=== PATIENT | male | born 1945 | race Caucasian/White ===

== ENCOUNTER 2016-09-16 10:00 | Outpatient (RCR) | payer OTHER, BC ==
--- OUTSIDE RECORDS SUMMARY | 2016-08-16 12:39 | XMS REPORT | Continuity of Care Document ---
Author Author [facility] Organization [facility] Address Unknown Phone Unavailable Care Team Providers Care Supreme [employer] Judge Name Role Phone BeckyAnita PCP [phone] Source Comments Some departments are not documenting in the electronic medical record. If you do not see the information that you expected, contact Release of Information in the Health Information Management department at [phone] for further assistance in locating additional records.[facility] Active Allergies and Adverse Reactions No Known Allergies Current Medications Prescription Sig. Disp. Refills Start End Date Status Date traMADol (ULTRAM) 50 mg Take 1 Tab by mouth every 40 Tab 0 08/18/19 Active tablet 6 hours as needed for 16 Pain. albuterol (VENTOLIN HFA, Inhale 2 Puffs by mouth Active PROAIR HFA, PROVENTIL into the lungs every 6 HFA) 90 mcg/actuation hours as needed for inhaler Wheezing or Shortness of Breath. Shake well before use. BUDESONIDE/FORMOTEROL Inhale by mouth into the Active FUMARATE (SYMBICORT IN) lungs. 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 CT and Tumor Markers prior to surgery negative. Pathology: Cystic Seminoma. 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 Respiratory Rate 16 09/08/2015 4:39 PM CDT Height 1.829 m (6') 03/08/2016 3:03 PM CDT Weight 68.04 kg (150 lb) 03/08/2016 3:03 PM CDT Body Mass Index 20.34 03/08/2016 3:03 PM CDT Oxygen Saturation 95% 08/12/2015 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 Plan of Care Date Type Specialty Providers Description 09/06/2016 Appointment Radiology Pavel Walker MD [address] [facility] [address] [place] [address] [phone] (Fax) 09/06/2016 Appointment Urology Pavel Walker MD [address] [facility] [place] [address] [place] [address] [phone] (Fax) Health Maintenance Due Date Last Done Comments Physical (Comprehensive) 1950 Exam Pertussis Vaccine 1954 Tetanus Vaccine 1960 Colorectal Cancer 1993 Screening Shingles Vaccine 2003 Prevnar/Pneumovax (#1) 2008 Influenza Vaccine 02/19/2016 Results from Last 3 Months Not on file
== END 2016-11-14 | disposition home or self-care (01) ==
LOC: PULM 10:00
PROVIDERS: ATTEND Nurse Practitioner
DX: J44.9 Chronic obstructive pulmonary disease, unspecified (principal)
CPT/HCPCS: 99211

== ENCOUNTER 2020-08-07 10:51 | Inpatient (IN) | payer MEDICARE, OTHER ==
[~2020-08-07] VITALS: Ht 177.8 cm; Wt 63.5 kg
[2020-08-07 11:59] LABS: BASOPHILS % (AUTO) 0 % (0-10); EOSINOPHILS % (AUTO) 0 % (0-10); HEMATOCRIT 25 % (40-54); HEMOGLOBIN 8.1 g/dL (13.3-17.7); LYMPHOCYTES % (AUTO) 6 % (12-44); MEAN CORPUSCULAR HEMOGLOBIN 30 pg (25-34); MEAN CORPUSCULAR HGB CONC 32 g/dL (32-36); MEAN CORPUSCULAR VOLUME 92 fL (80-99); MEAN PLATELET VOLUME 9.4 fL (9.0-12.2); MONOCYTES # (AUTO) 1.1 10^3/uL (0.0-1.0); MONOCYTES % (AUTO) 6 % (0-12); NEUTROPHILS # (AUTO) 15.1 10^3/uL (1.8-7.8); NEUTROPHILS % (AUTO) 88 % (42-75); PLATELET COUNT 364 10^3/uL (130-400); WHITE BLOOD COUNT 17.2 10^3/uL (4.3-11.0)
[2020-08-07 12:16] LABS: CHLORIDE 103 MMOL/L (98-107); POTASSIUM 4.7 MMOL/L (3.6-5.0); SODIUM 135 MMOL/L (135-145)
[2020-08-07 12:18] LABS: GLUCOSE 119 MG/DL (70-105)
[2020-08-07 12:19] LABS: CARBON DIOXIDE 22 MMOL/L (21-32)
[2020-08-07 12:20] LABS: BILIRUBIN,TOTAL 0.3 MG/DL (0.1-1.0)
[2020-08-07 12:21] LABS: BAND NEUTROPHILS 4 %; LYMPHOCYTES % (MANUAL) 3 %; MONOCYTES % (MANUAL) 5 %; NEUTROPHILS % (MANUAL) 84 %; TOXIC GRANULATION/VACUOLAZATIO 1+
[2020-08-07 12:22] LABS: ALKALINE PHOSPHATASE 81 U/L (40-136); CREATININE SERUM 1.02 MG/DL (0.60-1.30); GFR ESTIMATED > 60
[2020-08-07 12:23] LABS: BUN/CREATININE RATIO 30
--- NOTE | 2020-08-07 12:23 | Diagnostic Imaging Report ---
INDICATION: Increasing cough and dyspnea. Single AP view of the chest reveals dense mixed interstitial and alveolar densities in the upper 3rd of the right lung. Heart size and pulmonary vascularity are within normal limits. No other focal infiltrate, pneumothorax or pleural fluid is identified. IMPRESSION: Dense right upper lobe infiltrate of uncertain chronicity. This could represent fibrosis however acute pneumonia is not excluded. Possibility of postobstructive pneumonitis could have this appearance and clinical correlation is recommended. Short-term radiographic followup is recommended. If this finding persists, bronchoscopy or CT imaging should be considered. Dictated by: Dictated on workstation # [id number]
[2020-08-07 12:25] LABS: ALANINE AMINOTRANSFERASE 14 U/L (0-55)
[2020-08-07 12:43] LABS: INR 1.2 (0.8-1.4); PROTHROMBIN TIME PATIENT 15.6 SEC (12.2-14.7)
[2020-08-07] MEDS ORDERED: cefTRIAXone FOR IV USE 1,000 MG in WATER (STERILE) FOR INJECTION 10 ML IV ONE (13:45)
[2020-08-07 13:55] LABS: BILIRUBIN,URINE NEGATIVE (NEGATIVE); CLARITY,URINE CLEAR; COLOR,URINE YELLOW; GLUCOSE, URINE (UA) NEGATIVE (NEGATIVE); KETONES,URINE NEGATIVE (NEGATIVE); LEUKOCYTE ESTERASE ,URINE NEGATIVE (NEGATIVE); NITRITE,URINE NEGATIVE (NEGATIVE); PROTEIN,URINE TRACE (NEGATIVE)
[2020-08-07 14:07] LABS: BACTERIA,URINE NEGATIVE /HPF; SQUAMOUS EPITHELIAL CELL,UR 0-2 /HPF
--- NOTE | 2020-08-07 14:10 | ED General ---
General Chief Complaint: Respiratory Problems Stated Complaint: CHILLS,WEAKNESS,COUGH,SORE THROAT Nursing Triage Note: Ambulatory to ED. Pt reports history of COPD but reports increased SOB, and cough. Pt reports cough is productive and sputum is light brown. Pt reports fever, chills, and weakness. Symptoms have persisted for 3-4 days. Nursing Sepsis Screen: No Definite Risk Source of Information: Patient Exam Limitations: No Limitations History of Present Illness Date Seen by Provider: Aug 07, 2020 Time Seen by Provider: 11:35 Initial Comments This 75-year-old gentleman presents to the emergency room with complaints of increasing shortness of breath and cough over the past couple of days. He has a history of COPD. He has subjective fever, chills, and weakness but is afebrile at present. He sees the CT clinic in [place] and has an appointment with Dr. Spear coming up August 25. He reports COPD is his only health problem. Allergies and Home Medications Allergies Coded Allergies: No Known Drug Allergies (Unverified , 08/07/20) Patient Home Medication List Home Medication List Reviewed: Yes Review of Systems Review of Systems Constitutional: see HPI EENTM: no symptoms reported Respiratory: see HPI Cardiovascular: no symptoms reported Gastrointestinal: no symptoms reported Genitourinary: no symptoms reported Musculoskeletal: no symptoms reported Skin: no symptoms reported Psychiatric/Neurological: No Symptoms Reported Hematologic/Lymphatic: No Symptoms Reported Past Ngqzhvk-Nounyd-Tgxepp Hx Past Med/Social Hx: Reviewed Nursing Past Med/Soc Hx Patient Social History Alcohol Use: Denies Use Smoking Status: Current Everyday Smoker Type Used: Cigarettes 2nd Hand Smoke Exposure: Yes Recent Infectious Disease Expo: No Recent Hopitalizations: No Past Medical History Surgeries: Yes Adenoidectomy, Testicular, Tonsillectomy Respiratory: Yes COPD Cardiac: No Neurological: No Genitourinary: Yes ("flow problems") Musculoskeletal: No Endocrine: No HEENT: Yes Hearing Impairment: Hard of Hearing Cancer: Yes Testicular Did You Recieve Any Treatments: Yes What Type of Treatment Did You: Surgical Intervention R testicle removed Psychosocial: No Integumentary: No Blood Disorders: No Physical Exam-Suspected Sepsis Physical Exam Vital Signs Vital Signs - First Documented 08/07/20 08/07/20 08/07/20 11:00 11:02 16:25 Temp 37.8 Pulse 83 Resp 20 B/P (MAP) 130/72 (91) Pulse Ox 89 O2 Delivery Room Air O2 Flow Rate 2.00 FiO2 21 Capillary Refill : Less Than 3 Seconds Blood Pressure Mean: 91 Height, Weight, BMI Height: '" Weight: lbs. oz. kg; 20.00 BMI Method: General Appearance: No Apparent Distress, WD/WN, Thin HEENT: PERRL/EOMI, Normal ENT Inspection Neck: Normal Inspection Respiratory: No Accessory Muscle Use, No Respiratory Distress, Crackles (Faint in the right lung) Cardiovascular: Regular Rate, Rhythm, No Edema, No Murmur Gastrointestinal: Normal Bowel Sounds, Non Tender, Soft Extremity: Normal Inspection, No Pedal Edema Neurologic/Psychiatric: Alert, Oriented x3, No Motor/Sensory Deficits, Normal Mood/Affect, hook up driver II-XII Norm as Tested Skin: normal color, warm/dry Focused Exam Lactate Level 08/07/20 11:38: Lactic Acid Level 1.30 Lactic Acid Level Progress/Results/Core Measures Suspected Sepsis Recent Fever Within 48 Hours: Yes Infection Criteria Present: Suspected New Infection New/Unexplained Altered Menta: No Sepsis Screen: No Definite Risk SIRS Temperature: Pulse: 83 Respiratory Rate: 20 Laboratory Tests 08/07/20 11:35: White Blood Count 17.2H Blood Pressure 130 /72 Mean: 91 08/07/20 11:38: Lactic Acid Level 1.30 Laboratory Tests 08/07/20 11:35: Creatinine 1.02, Platelet Count 364, Total Bilirubin 0.3 08/07/20 11:38: INR Comment 1.2 Results/Orders Lab Results Laboratory Tests Test 08/07/20 11:35 08/07/20 11:38 08/07/20 13:45 Range/Units White Blood Count 17.2 H 4.3-11.0 10^3/uL Red Blood Count 2.75 L 4.30-5.52 10^6/uL Hemoglobin 8.1 L 13.3-17.7 g/dL Hematocrit 25 L 40-54 % Mean Corpuscular Volume 92 80-99 fL Mean Corpuscular Hemoglobin 30 25-34 pg Mean Corpuscular Hemoglobin Concent 32 32-36 g/dL Red Cell Distribution Width 13.8 10.0-14.5 % Platelet Count 364 130-400 10^3/uL Mean Platelet Volume 9.4 9.0-12.2 fL Immature Granulocyte % (Auto) 1 % Neutrophils (%) (Auto) 88 H 42-75 % Lymphocytes (%) (Auto) 6 L 12-44 % Monocytes (%) (Auto) 6 0-12 % Eosinophils (%) (Auto) 0 0-10 % Basophils (%) (Auto) 0 0-10 % Neutrophils # (Auto) 15.1 H 1.8-7.8 10^3/uL Lymphocytes # (Auto) 1.0 1.0-4.0 10^3/uL Monocytes # (Auto) 1.1 H 0.0-1.0 10^3/uL Eosinophils # (Auto) 0.0 0.0-0.3 10^3/uL Basophils # (Auto) 0.0 0.0-0.1 10^3/uL Immature Granulocyte # (Auto) 0.1 0.0-0.1 10^3/uL Neutrophils % (Manual) 84 % Lymphocytes % (Manual) 3 % Monocytes % (Manual) 5 % Band Neutrophils 4 % Toxic Granulation 1+ Sodium Level 135 135-145 MMOL/L Potassium Level 4.7 3.6-5.0 MMOL/L Chloride Level 103 98-107 MMOL/L Carbon Dioxide Level 22 21-32 MMOL/L Anion Gap 10 5-14 MMOL/L Blood Urea Nitrogen 31 H 7-18 MG/DL Creatinine 1.02 0.60-1.30 MG/DL Estimat Glomerular Filtration Rate > 60 BUN/Creatinine Ratio 30 Glucose Level 119 H 70-105 MG/DL Calcium Level 9.0 8.5-10.1 MG/DL Corrected Calcium 9.8 8.5-10.1 MG/DL Total Bilirubin 0.3 0.1-1.0 MG/DL Aspartate Amino Transf (AST/SGOT) 15 5-34 U/L Alanine Aminotransferase (ALT/SGPT) 14 0-55 U/L Alkaline Phosphatase 81 40-136 U/L C-Reactive Protein High Sensitivity 32.25 H 0.00-0.50 MG/DL Total Protein 7.0 6.4-8.2 GM/DL Albumin 3.0 L 3.2-4.5 GM/DL Coronavirus 2019 (HALLIE) Positive H Negative Prothrombin Time 15.6 H 12.2-14.7 SEC INR Comment 1.2 0.8-1.4 Activated Partial Thromboplast Time 48 H 24-35 SEC D-Dimer 2.93 H 0.00-0.49 UG/ML Lactic Acid Level 1.30 0.50-2.00 MMOL/L Procalcitonin 1.75 H <0.10 NG/ML Urine Color YELLOW Urine Clarity CLEAR Urine pH 6.0 5-9 Urine Specific [place] 1.015 L 1.016-1.022 Urine Protein TRACE H NEGATIVE Urine Glucose (UA) NEGATIVE NEGATIVE Urine Ketones NEGATIVE NEGATIVE Urine Nitrite NEGATIVE NEGATIVE Urine Bilirubin NEGATIVE NEGATIVE Urine Urobilinogen 0.2 < = 1.0 MG/DL Urine Leukocyte Esterase NEGATIVE NEGATIVE Urine RBC (Auto) NEGATIVE NEGATIVE Urine RBC NONE /HPF Urine WBC NONE /HPF Urine Squamous Epithelial Cells 0-2 /HPF Urine Crystals NONE /LPF Urine Bacteria NEGATIVE /HPF Urine Casts NONE /LPF Urine Mucus SMALL H /LPF Urine Culture Indicated CULTURE PENDING Micro Results Microbiology 08/07/20 Influenza Types A,B Antigen (AALIYAH) - Final, Complete My Orders Orders - ROBERT WILEY MD Cbc With Automated Diff (08/07/20 11:40) Comprehensive Metabolic Panel (08/07/20 11:40) Hs C Reactive Protein (08/07/20 11:40) Influenza A And B Antigens (08/07/20 11:40) Chest 1 View, Ap/Pa Only (08/07/20 11:40) Covid 19 Inhouse Test (08/07/20 11:40) Ed Iv/Invasive Line Start (08/07/20 11:40) Manual Differential (08/07/20 11:35) Blood Culture (08/07/20 12:29) Sputum Culture (08/07/20 12:29) Urinalysis (08/07/20 12:29) Urine Culture (08/07/20 12:29) Protime With Inr (08/07/20 12:29) Partial Thromboplastin Time (08/07/20 12:29) Vital Signs Adult Sepsis Patie Q15M (08/07/20 12:29) O2 (08/07/20 12:29) Remove Rings In Anticipation O (08/07/20 12:29) Lactic Acid Analyzer (08/07/20 12:29) Dexamethasone Injection (Decadron Inje (08/07/20 13:45) Ceftriaxone For Iv Use (Rocephin For I (08/07/20 13:45) Procalcitonin (Pct) (08/07/20 13:34) Fibrin Degradation Products (08/07/20 14:00) Enoxaparin Injection (Lovenox Injection) (08/07/20 14:45) Medications Given in ED Current Medications Medications Dose Ordered Sig/Fariba Route Start Time Stop Time Status Last Admin Dose Admin Ceftriaxone Sodium 1000 mg/ Sterile Water 10 ml @ 200 mls/hr ONCE ONCE IV 08/07/20 13:45 08/07/20 13:47 DC 08/07/20 13:56 200 MLS/HR Dexamethasone Sodium Phosphate 6 mg ONCE ONCE IV 08/07/20 13:45 08/07/20 13:46 DC 08/07/20 13:51 6 MG Vital Signs/I&O 08/07/20 08/07/20 08/07/20 08/07/20 11:00 11:02 15:12 15:45 Temp 37.8 37.8 Pulse 83 73 Resp 20 20 B/P (MAP) 130/72 (91) 125/67 (91) Pulse Ox 89 94 94 O2 Delivery Room Air Nasal Cannula Nasal Cannula Nasal Cannula O2 Flow Rate 2.00 2.00 1.00 08/07/20 08/07/20 16:25 16:41 Temp 37.8 36.8 Pulse 83 87 Resp 18 B/P (MAP) 128/69 (88) Pulse Ox 89 91 O2 Delivery Nasal Cannula O2 Flow Rate 1.00 FiO2 21 Capillary Refill : Less Than 3 Seconds Blood Pressure Mean: 91 Progress Note #1: Time: 14:12 Progress Note Patient was seen and evaluated. Screening for COVID-19 and influenza resulted positive for COVID-19. Chest x-ray revealed a right upper lobe infiltrate suspicious for pneumonia or pneumonitis. Blood cultures and lactic acid were obtained. Dexamethasone was given. Antibiotic therapy was initiated with Rocephin. Upon admission antibiotic therapy will be changed to Zosyn due to COPD history. We will continue steroid therapy with dexamethasone. CTA should be obtained on this patient given the appearance of chest x-ray. Dr. Spear will arrange for CT after admission. Case was reviewed with Dr. Spear and Dr. Aburto. I discussed CODE STATUS with the patient and he would like to remain full code. Progress Note #2: Time: 14:33 Progress Note D-dimer was elevated and Lovenox was ordered to administer in the ER. Dr. Aburto and Dr. Spear were updated. Diagnostic Imaging Diagonstic Imaging: Xray Plain Films/CT/US/NM/MRI: chest Comments Chest x-ray viewed by me and report reviewed. See report below: NAME: STEVE SCHULTE [facility] REC#: [id number] PT STATUS: REG ER : 1945 PHYSICIAN: ROBERT WILEY MD ADMIT DATE: 08/07/20/ER Draft Date of Exam:08/07/20 CHEST 1 VIEW, AP/PA ONLY INDICATION: Increasing cough and dyspnea. Single AP view of the chest reveals dense mixed interstitial and alveolar densities in the upper 3rd of the right lung. Heart size and pulmonary vascularity are within normal limits. No other focal infiltrate, pneumothorax or pleural fluid is identified. IMPRESSION: Dense right upper lobe infiltrate of uncertain chronicity. This could represent fibrosis however acute pneumonia is not excluded. Possibility of postobstructive pneumonitis could have this appearance and clinical correlation is recommended. Short-term radiographic followup is recommended. If this finding persists, bronchoscopy or CT imaging should be considered. Dictated on workstation # [id number] Dict: 08/07/20 1215 Trans: 08/07/20 1223 [facility] [id number] Interpreted by: ANNEMARIE BROOKS MD Departure Communication (Admissions) Time/Spoke to Admitting Phy: 14:04 Dr. Aburto Time/Spoke to Consulting Phy: 14:00 Dr. Spear Impression Primary Impression: COVID-19 Additional Impressions: Hypoxia Right upper lobe pneumonia Qualified Codes: J18.9 - Pneumonia, unspecified organism COPD exacerbation Elevated d-dimer Disposition: ADMITTED INPATIENT Condition: Improved Admissions Decision to Admit Reason: Admit from ER (General) Decision to Admit/Date: Aug 07, 2020 Time/Decision to Admit Time: 11:40 Departure-Patient Inst. Referrals: LUBNA HAWKINS (PCP/Family) Primary Care Physician ROBERT WILEY MD Aug 07, 2020 14:10
[2020-08-07] MEDS ORDERED: ENOXAPARIN 60 MG/0.6 ML (LOVENOX) SYR SC ONE (14:45)
[2020-08-07 16:25] VITALS: BP 130/72
[2020-08-07 16:41] VITALS: BP 128/69
[2020-08-07] MEDS ORDERED: ACETAMINOPHEN 500 MG TAB (TYLENOL) PO PRN (16:45)
[2020-08-07] MEDS ORDERED: PIPERACILLIN/TAZO 4.5 GM/NS 100 ML IV NR ×2 (17:00)
[2020-08-07] MEDS ORDERED: ONDANSETRON 4 MG/2 ML (SDV) Z0FRAN IVP PRN (17:15)
[2020-08-07] MEDS: LACTATED RINGERS 1,000 ML IV SCH (18:02)
[2020-08-07] MEDS: IPRATROPIUM INHALER (ATROVENT) 12.9 GM INH SCH ×2 (18:40→22:10)
[2020-08-07] MEDS: RT-ALBUTEROL INHALER HFA (VENTOLIN HFA) 18 GM IH SCH ×2 (18:40→22:09)
[2020-08-07] MEDS ORDERED: RT-ALBUTEROL INHALER HFA (VENTOLIN HFA) 18 GM IH PRN (20:00)
[2020-08-07 20:18] VITALS: BP 119/70
[2020-08-07] MEDS: PIPERACILLIN/TAZOBACTAM (BULK) 4.5 GM in NS (IVPB) 100 ML IV SCH (22:51)
[2020-08-08] VITALS (7 sets, daily range): BP systolic 101–167; BP diastolic 55–83
[2020-08-08] MEDS: RT-ALBUTEROL INHALER HFA (VENTOLIN HFA) 18 GM IH SCH ×6 (02:01→21:35)
[2020-08-08] MEDS: IPRATROPIUM INHALER (ATROVENT) 12.9 GM INH SCH ×6 (02:01→21:35)
[2020-08-08] MEDS: ENOXAPARIN 60 MG/0.6 ML (LOVENOX) SYR SC SCH ×2 (03:47→15:18)
[2020-08-08] MEDS: LACTATED RINGERS 1,000 ML IV SCH ×2 (06:18→15:18)
[2020-08-08] MEDS: PIPERACILLIN/TAZOBACTAM (BULK) 4.5 GM in NS (IVPB) 100 ML IV SCH ×2 (06:21→15:18)
[2020-08-08 06:39] LABS: BASOPHILS % (AUTO) 0 % (0-10); EOSINOPHILS % (AUTO) 0 % (0-10); HEMATOCRIT 27 % (40-54); HEMOGLOBIN 8.5 g/dL (13.3-17.7); LYMPHOCYTES # (AUTO) 0.9 10^3/uL (1.0-4.0); LYMPHOCYTES % (AUTO) 7 % (12-44); MEAN CORPUSCULAR HEMOGLOBIN 29 pg (25-34); MEAN CORPUSCULAR HGB CONC 31 g/dL (32-36); MEAN CORPUSCULAR VOLUME 93 fL (80-99); MEAN PLATELET VOLUME 9.6 fL (9.0-12.2); MONOCYTES # (AUTO) 0.5 10^3/uL (0.0-1.0); MONOCYTES % (AUTO) 4 % (0-12); NEUTROPHILS # (AUTO) 11.7 10^3/uL (1.8-7.8); NEUTROPHILS % (AUTO) 89 % (42-75); PLATELET COUNT 425 10^3/uL (130-400); WHITE BLOOD COUNT 13.2 10^3/uL (4.3-11.0)
[2020-08-08 06:41] LABS: CHLORIDE 106 MMOL/L (98-107); SODIUM 140 MMOL/L (135-145)
[2020-08-08 06:42] LABS: CALCIUM 9.1 MG/DL (8.5-10.1)
[2020-08-08 06:43] LABS: GLUCOSE 127 MG/DL (70-105)
[2020-08-08 06:44] LABS: CARBON DIOXIDE 23 MMOL/L (21-32)
[2020-08-08 06:47] LABS: BUN/CREATININE RATIO 38; CREATININE SERUM 0.87 MG/DL (0.60-1.30); GFR ESTIMATED > 60
[2020-08-08] MEDS ORDERED: ALB0.5V INH (12:30)
[2020-08-08] MEDS ORDERED: MOME13HF INH (12:30)
[2020-08-08] MEDS ORDERED: GUAI400T86 PO (12:30)
[2020-08-08] MEDS ORDERED: NAPR-915 PO (12:30)
[2020-08-08] MEDS ORDERED: ACET-2267 PO (12:30)
[2020-08-08] MEDS ORDERED: MONT10TA32 PO (12:30)
[2020-08-08] MEDS ORDERED: RT-ALBUINH IH (12:30)
[2020-08-08] MEDS ORDERED: TIOT4MIS2 IH (12:30)
[2020-08-08] MEDS ORDERED: TMSL.4C PO (12:30)
[2020-08-08] MEDS ORDERED: diphenhydrAMINE 25 MG TAB (BENADRYL) PO PRN ×2 (16:15→23:45)
[2020-08-08] MEDS ORDERED: ONDANSETRON 4 MG/2 ML (SDV) Z0FRAN IV PRN (16:15)
[2020-08-08] MEDS ORDERED: MILK OF MAGNESIA 400 MG/5 ML 30 ML UDC PO PRN (16:15)
[2020-08-08] MEDS ORDERED: polyethylene glycoL POWDER 17 GM (MIRALAX) PACK PO PRN (16:15)
[2020-08-08] MEDS ORDERED: ANTACID SUSP 30 ML UDC (MYLANTA) PO PRN (16:15)
[2020-08-08] MEDS ORDERED: ONDANSETRON 4 MG (ZOFRAN) ORAL DISSOLVE TAB PO PRN (16:15)
--- NOTE | 2020-08-08 16:35 | History & Physical-Hospitalist ---
History of Present Illness HPI/Chief Complaint Artie Valderrama is a 75 year old male with COPD, BPH, who presented with shortness of breath. He reports that he started feeling bad about 5 days ago. He reports cough and sputum production. He has had fevers. He denies chest pain. He denies abnormal taste and smell. He denies diarrhea. He denies nausea and vomiting. He is a current every day smoker of about one pack per day. Source: patient Exam Limitations: no limitations Date Seen 08/08/20 Time Seen by a Provider: 10:15 Attending Physician Danielle Greene MD PCP Anita Willis Referring Physician Date of Admission Aug 07, 2020 at 14:07 Home Medications & Allergies Home Medications Reviewed patient Home Medication Reconciliation performed by pharmacy medication reconciliations geospatial technician and/or nursing. Patients Allergies have been reviewed. Allergies Allergies Coded Allergies No Known Drug Allergies (Unverified08/07/20) Past Kxqtnfb-Wymzwc-Fnrlys Hx Past Med/Social Hx: Reviewed Nursing Past Med/Soc Hx Patient Social History Alcohol Use: Denies Use Recreational Drug Use: No Smoking Status: Current Everyday Smoker Type Used: Cigarettes 2nd Hand Smoke Exposure: Yes Recent Foreign Travel: No Contact w/other who traveled: No Recent Hopitalizations: No Recent Infectious Disease Expo: No Immunizations Up To Date Date of Influenza Vaccine: Mar 20, 2020 Past Medical History Surgeries: Adenoidectomy, Testicular, Tonsillectomy Hearing Impairment: Hard of Hearing Cancer: Testicular Did You Recieve Any Treatments: Yes What Type of Treatment Did You: Surgical Intervention Cancer: R testicle removed History of Blood Disorders: No Review of Systems Constitutional: fever, malaise EENTM: no symptoms reported Respiratory: cough, phlegm, short of breath Cardiovascular: no symptoms reported Gastrointestinal: no symptoms reported Genitourinary: no symptoms reported Musculoskeletal: muscle pain Skin: no symptoms reported Psychiatric/Neurological: No Symptoms Reported Physical Exam Physical Exam Vital Signs Vital Signs - First Documented 08/07/20 08/07/20 08/07/20 11:00 11:02 16:25 Temp 37.8 Pulse 83 Resp 20 B/P (MAP) 130/72 (91) Pulse Ox 89 O2 Delivery Room Air O2 Flow Rate 2.00 FiO2 21 Capillary Refill : Less Than 3 Seconds Height, Weight, BMI Height: '" Weight: lbs. oz. kg; 20.08 BMI Method: General Appearance: No Apparent Distress, WD/WN HEENT: PERRL/EOMI, Pharynx Normal Neck: Normal Inspection, Supple Respiratory: No Respiratory Distress, Decreased Breath Sounds Cardiovascular: Regular Rate, Rhythm, No Edema, No Murmur Gastrointestinal: Normal Bowel Sounds, Non Tender, Soft Extremity: Normal Inspection, Non Tender, No Pedal Edema Neurologic/Psychiatric: Alert, Oriented x3, No Motor/Sensory Deficits, Normal Mood/Affect Skin: Normal Color, Warm/Dry Results Results/Procedures Labs Laboratory Tests 08/07/20 11:35 08/08/20 06:03 Patient resulted labs reviewed. Imaging: Reviewed Imaging Report Assessment/Plan Admission Diagnosis Acute respiratory failure due to COVID-19 Admission Status: Inpatient Order (span 2 midnights) Reason for Inpatient Admission: Respiratory failure requiring supplemental oxygen Assessment and Plan Acute respiratory failure due to COVID-19 Sepsis due to pneumonia COPD Hypercoagulable state associated with COVID-19 COVID HALLIE positive SIRS+ with leukocytosis and tachycardia CXR with right upper lobe dense consolidation Follow up CT recommended Pulmonology consulted, appreciate assistance Started on Decadron Convalescent plasma ordered Supplemental oxygen as needed Continue home inhalers MAT protocol Procalcitonin elevated Started on Zosyn D-dimer elevated Started on therapeutic Lovenox Diagnosis/Problems Diagnosis/Problems (1) Acute respiratory failure due to COVID-19 Status: Acute (2) Sepsis due to pneumonia Status: Acute (3) Hypercoagulable state associated with COVID-19 Status: Acute (4) COPD (chronic obstructive pulmonary disease) Status: Chronic (5) BPH (benign prostatic hyperplasia) Status: Chronic (6) Current every day smoker DANIELLE GREENE MD Aug 08, 2020 16:35
[2020-08-08] MEDS ORDERED: NICOTINE 14 MG (NICODERM) PATCH TD ONE ×2 (16:45→21:00)
[2020-08-08] MEDS: ADVAIR HFA 115/21 MCG INHALER 8 GM IH SCH (18:56)
[2020-08-08] MEDS: guaiFENesin (MUCINEX) 600 MG TAB PO SCH (21:11)
[2020-08-08] MEDS: MELATONIN 3 MG TABLET PO PRN (21:11)
[2020-08-08] MEDS: ZOLPIDEM 5 MG (AMBIEN) TAB PO SCH (21:11)
[2020-08-08] MEDS: inSUlin ASPART (NovoLOG) 1 UNIT/0.01 ML (CHARGE PER UNIT) SC SCH (21:12)
[2020-08-08] MEDS ORDERED: NS IV 500 ML 500 ML ONE (22:25)
[2020-08-09 01:10] VITALS: BP 133/65
[2020-08-09] MEDS: PIPERACILLIN/TAZOBACTAM (BULK) 4.5 GM in NS (IVPB) 100 ML IV SCH ×4 (01:58→22:37)
[2020-08-09] MEDS: IPRATROPIUM INHALER (ATROVENT) 12.9 GM INH SCH ×6 (02:00→21:57)
[2020-08-09] MEDS: RT-ALBUTEROL INHALER HFA (VENTOLIN HFA) 18 GM IH SCH ×6 (02:00→21:58)
[2020-08-09 02:01] VITALS: BP 136/62
[2020-08-09 02:02] VITALS: BP 136/64
[2020-08-09] MEDS: ENOXAPARIN 60 MG/0.6 ML (LOVENOX) SYR SC SCH ×2 (04:06→16:15)
[2020-08-09 05:30] LABS: HEMATOCRIT 25 % (40-54); WHITE BLOOD COUNT 13.7 10^3/uL (4.3-11.0)
[2020-08-09 05:31] LABS: BASOPHILS % (AUTO) 0 % (0-10); EOSINOPHILS % (AUTO) 0 % (0-10); LYMPHOCYTES # (AUTO) 1.1 10^3/uL (1.0-4.0); LYMPHOCYTES % (AUTO) 8 % (12-44); MEAN CORPUSCULAR HEMOGLOBIN 29 pg (25-34); MEAN CORPUSCULAR HGB CONC 32 g/dL (32-36); MEAN CORPUSCULAR VOLUME 93 fL (80-99); MEAN PLATELET VOLUME 9.4 fL (9.0-12.2); MONOCYTES # (AUTO) 0.8 10^3/uL (0.0-1.0); MONOCYTES % (AUTO) 6 % (0-12); NEUTROPHILS # (AUTO) 11.6 10^3/uL (1.8-7.8); NEUTROPHILS % (AUTO) 85 % (42-75); PLATELET COUNT 371 10^3/uL (130-400)
[2020-08-09 05:41] LABS: CHLORIDE 104 MMOL/L (98-107); POTASSIUM 4.8 MMOL/L (3.6-5.0); SODIUM 136 MMOL/L (135-145)
[2020-08-09 05:42] LABS: CALCIUM 9.2 MG/DL (8.5-10.1)
[2020-08-09 05:43] LABS: GLUCOSE 122 MG/DL (70-105)
[2020-08-09 05:44] LABS: CARBON DIOXIDE 23 MMOL/L (21-32)
[2020-08-09] MEDS: inSUlin ASPART (NovoLOG) 1 UNIT/0.01 ML (CHARGE PER UNIT) SC SCH ×4 (05:46→21:01)
[2020-08-09 05:47] LABS: BUN/CREATININE RATIO 32; CREATININE SERUM 0.85 MG/DL (0.60-1.30); GFR ESTIMATED > 60
[2020-08-09] MEDS: ADVAIR HFA 115/21 MCG INHALER 8 GM IH SCH ×2 (07:26→19:04)
[2020-08-09] MEDS: UMECLIDINIUM BROMIDE (INCRUSE ELLIPTA) 7'S IH SCH (07:26)
[2020-08-09 08:00] VITALS: BP 146/78
[2020-08-09] MEDS: guaiFENesin (MUCINEX) 600 MG TAB PO SCH ×2 (09:38→21:57)
[2020-08-09] MEDS: TAMSULOSIN 0.4 MG (FLOMAX) CAP PO SCH (09:38)
[2020-08-09] MEDS: NICOTINE PATCH REMOVAL TP SCH (09:45)
[2020-08-09] MEDS: MONTELUKAST 10 MG (SINGULAIR) TAB PO SCH (09:54)
[2020-08-09] MEDS: NICOTINE 14 MG (NICODERM) PATCH TD SCH (10:02)
--- NOTE | 2020-08-09 10:56 | Progress Note - Hospitalist ---
Subjective HPI/CC On Admission Date Seen by Provider: Aug 09, 2020 Time Seen by Provider: 10:30 Artie Valderrama is a 75 year old male with COPD, BPH, who presented with shortness of breath. He reports that he started feeling bad about 5 days ago. He reports cough and sputum production. He has had fevers. He denies chest pain. He denies abnormal taste and smell. He denies diarrhea. He denies nausea and vomiting. He is a current every day smoker of about one pack per day. Subjective/Events-last exam He reports feeling "like I got hit by a truck". He reports fevers. He is having a bad cough. He gets short of breath with walking to the bathroom. He says he has never felt worse in his life. Focused Exam Lactate Level 08/07/20 11:38: Lactic Acid Level 1.30 Objective Exam Vital Signs Vital Signs Date Time Temp Pulse Resp B/P (MAP) Pulse Ox O2 Delivery O2 Flow Rate FiO2 08/09/20 10:42 92 Nasal Cannula 1.00 08/09/20 08:00 36.1 64 20 146/78 (100) 08/07/20 16:25 21 Capillary Refill : Less Than 3 Seconds General Appearance: No Apparent Distress, Anxious, Chronically ill Respiratory: No Respiratory Distress, Decreased Breath Sounds Cardiovascular: Regular Rate, Rhythm, No Edema, No Murmur Gastrointestinal: Normal Bowel Sounds, Non Tender, Soft Extremity: Normal Inspection, Non Tender, No Pedal Edema Neurologic/Psychiatric: Alert, Oriented x3, No Motor/Sensory Deficits Skin: Normal Color, Warm/Dry Results/Procedures Lab Laboratory Tests 08/09/20 05:17 Patient resulted labs reviewed. Imaging: Reviewed Imaging Report Assessment/Plan Assessment and Plan Assess & Plan/Chief Complaint Acute respiratory failure due to COVID-19 Sepsis due to pneumonia COPD Hypercoagulable state associated with COVID-19 Anxiety Continue Decadron s/p convalescent plasma Supplemental oxygen as needed Continue home inhalers MAT protocol Continue Zosyn D-dimer improving Continue Lovenox Add Robitussin for cough Add Xanax for anxiety Diagnosis/Problems Diagnosis/Problems (1) Acute respiratory failure due to COVID-19 Status: Acute (2) Sepsis due to pneumonia Status: Acute (3) Hypercoagulable state associated with COVID-19 Status: Acute (4) COPD (chronic obstructive pulmonary disease) Status: Chronic (5) BPH (benign prostatic hyperplasia) Status: Chronic (6) Current every day smoker DANIELLE GREENE MD Aug 09, 2020 10:56
[2020-08-09] MEDS ORDERED: ALPRAZolam 0.5 MG (XANAX) TAB PO PRN (11:00)
[2020-08-09] MEDS ORDERED: guaiFENesin/DM (ROBITUSSIN DM) 10 ML UDC PO PRN (11:00)
[2020-08-09] MEDS: guaiFENesin/DM (ROBITUSSIN DM) 10 ML UDC PO PRN (11:38)
[2020-08-09] MEDS: LACTATED RINGERS 1,000 ML IV SCH ×2 (11:52→21:58)
[2020-08-09 16:13] VITALS: BP 138/67
[2020-08-09] MEDS: MELATONIN 3 MG TABLET PO PRN (21:57)
[2020-08-09] MEDS: ZOLPIDEM 5 MG (AMBIEN) TAB PO SCH (21:57)
[2020-08-09] MEDS: ACETAMINOPHEN 325 MG TABLET PO PRN (21:57)
[2020-08-10] VITALS: BP 120/66
[2020-08-10] MEDS: IPRATROPIUM INHALER (ATROVENT) 12.9 GM INH SCH ×3 (01:02→10:30)
[2020-08-10] MEDS: RT-ALBUTEROL INHALER HFA (VENTOLIN HFA) 18 GM IH SCH ×3 (01:02→10:29)
[2020-08-10] MEDS: ENOXAPARIN 60 MG/0.6 ML (LOVENOX) SYR SC SCH (03:00)
[2020-08-10] MEDS: inSUlin ASPART (NovoLOG) 1 UNIT/0.01 ML (CHARGE PER UNIT) SC SCH ×2 (05:31→11:10)
[2020-08-10 05:38] LABS: BASOPHILS % (AUTO) 0 % (0-10); EOSINOPHILS % (AUTO) 0 % (0-10); HEMATOCRIT 27 % (40-54); HEMOGLOBIN 8.4 g/dL (13.3-17.7); LYMPHOCYTES # (AUTO) 1.3 10^3/uL (1.0-4.0); LYMPHOCYTES % (AUTO) 11 % (12-44); MEAN CORPUSCULAR HEMOGLOBIN 29 pg (25-34); MEAN CORPUSCULAR HGB CONC 32 g/dL (32-36); MEAN CORPUSCULAR VOLUME 91 fL (80-99); MEAN PLATELET VOLUME 9.3 fL (9.0-12.2); MONOCYTES # (AUTO) 0.7 10^3/uL (0.0-1.0); MONOCYTES % (AUTO) 6 % (0-12); NEUTROPHILS # (AUTO) 9.5 10^3/uL (1.8-7.8); NEUTROPHILS % (AUTO) 82 % (42-75); PLATELET COUNT 408 10^3/uL (130-400); WHITE BLOOD COUNT 11.5 10^3/uL (4.3-11.0)
[2020-08-10 05:49] LABS: CHLORIDE 102 MMOL/L (98-107); POTASSIUM 4.5 MMOL/L (3.6-5.0); SODIUM 139 MMOL/L (135-145)
[2020-08-10 05:50] LABS: CALCIUM 9.1 MG/DL (8.5-10.1); GLUCOSE 112 MG/DL (70-105)
[2020-08-10 05:52] LABS: CARBON DIOXIDE 27 MMOL/L (21-32)
[2020-08-10 05:54] LABS: CREATININE SERUM 0.91 MG/DL (0.60-1.30); GFR ESTIMATED > 60
[2020-08-10 05:55] LABS: BUN/CREATININE RATIO 23
[2020-08-10] MEDS: PIPERACILLIN/TAZOBACTAM (BULK) 4.5 GM in NS (IVPB) 100 ML IV SCH (06:05)
[2020-08-10] MEDS: LACTATED RINGERS 1,000 ML IV SCH (06:44)
[2020-08-10] MEDS: ACETAMINOPHEN 325 MG TABLET PO PRN (07:04)
[2020-08-10] MEDS: UMECLIDINIUM BROMIDE (INCRUSE ELLIPTA) 7'S IH SCH (07:17)
[2020-08-10] MEDS: ADVAIR HFA 115/21 MCG INHALER 8 GM IH SCH (07:18)
[2020-08-10 07:49] VITALS: BP 133/74
[2020-08-10] MEDS: guaiFENesin (MUCINEX) 600 MG TAB PO SCH (08:37)
[2020-08-10] MEDS: NICOTINE 14 MG (NICODERM) PATCH TD SCH (08:37)
[2020-08-10] MEDS: MONTELUKAST 10 MG (SINGULAIR) TAB PO SCH (08:37)
[2020-08-10] MEDS: TAMSULOSIN 0.4 MG (FLOMAX) CAP PO SCH (08:37)
[2020-08-10] MEDS: guaiFENesin/DM (ROBITUSSIN DM) 10 ML UDC PO PRN (08:37)
[2020-08-10] MEDS: NICOTINE PATCH REMOVAL TP SCH (08:44)
[2020-08-10] MEDS ORDERED: CEFD300C3 PO (10:12)
--- NOTE | 2020-08-10 11:26 | Discharge Summary ---
Discharge Summary Hospital Course Was the Problem List Reviewed?: Yes Problems/Dx: (1) Acute respiratory failure due to COVID-19 Status: Acute (2) Sepsis due to pneumonia Status: Acute (3) Hypercoagulable state associated with COVID-19 Status: Acute (4) COPD (chronic obstructive pulmonary disease) Status: Chronic (5) BPH (benign prostatic hyperplasia) Status: Chronic (6) Current every day smoker Status: Acute Hospital Course Date of Admission: Aug 07, 2020 at 14:07 Admission Diagnosis : acute respiratory failure due to COVID-19, sepsis due to pneumonia Family Physician/Provider: Anita Willis Date of Discharge: 08/10/20 Discharge Diagnosis: acute respiratory failure due to COVID-19, sepsis due to pneumonia Hospital Course: Artie Valderrama is a 75-year-old male with past medical history of COPD who the was admitted with acute respiratory failure due to COVID-19. He was treated with Decadron and convalescent plasma. His course was complicated by sepsis due to pneumonia for which she received IV Zosyn and was then transitioned to oral Omnicef. He had a slightly elevated d-dimer and was treated with Lovenox. His d-dimer trended downward. His imaging was concerning for a possible underlying lung mass. He is scheduled to establish with pulmonology and he should undergo a CT scan in 4-8 weeks. He should follow-up with his primary care physician in about a week. Labs and Pending Lab Test: Laboratory Tests 08/09/20 16:21: Glucometer 148H 08/09/20 20:54: Glucometer 167H 08/10/20 05:17: Glucometer 102 08/10/20 05:27: White Blood Count 11.5H, Red Blood Count 2.92L, Hemoglobin 8.4L, Hematocrit 27L, Mean Corpuscular Volume 91, Mean Corpuscular Hemoglobin 29, Mean Corpuscular Hemoglobin Concent 32, Red Cell Distribution Width 13.8, Platelet Count 408H, Mean Platelet Volume 9.3, Immature Granulocyte % (Auto) 0, Neutrophils (%) (Auto) 82H, Lymphocytes (%) (Auto) 11L, Monocytes (%) (Auto) 6, Eosinophils (%) (Auto) 0, Basophils (%) (Auto) 0, Neutrophils # (Auto) 9.5H, Lymphocytes # (Auto) 1.3, Monocytes # (Auto) 0.7, Eosinophils # (Auto) 0.0, Basophils # (Auto) 0.0, Immature Granulocyte # (Auto) 0.1, Sodium Level 139, Potassium Level 4.5, Chloride Level 102, Carbon Dioxide Level 27, Anion Gap 10, Blood Urea Nitrogen 21H, Creatinine 0.91, Estimat Glomerular Filtration Rate > 60, BUN/Creatinine Ratio 23, Glucose Level 112H, Calcium Level 9.1, Procalcitonin 0.84H 08/10/20 10:59: Glucometer 170H Microbiology 08/07/20 Urine Culture - Final, Complete NO GROWTH 08/07/20 Blood Culture - Preliminary, Resulted Staph, Coag Neg ([employer]ER) 08/07/20 Influenza Types A,B Antigen (AALIYAH) - Final, Complete Home Meds Active Cefdinir 300 Mg Capsule 300 Mg PO BID 7 Days Reported Tylenol Extra Strength (Acetaminophen) 500 Mg Tablet 1,500-2,000 Mg PO Q8H PRN TAKES 3 TO 4 (500MG) TABS Spiriva Respimat 2.5MCG/ACTUATION (Tiotropium [place]) 4 Gm Mist.inhal 2 Puff IH DAILY Flomax (Tamsulosin HCl) 0.4 Mg Cap 0.8 Mg PO DAILY TAKES 2 (0.4MG) CAPS Naproxen 500 Mg Tablet 500 Mg PO BID PRN Montelukast Sodium 10 Mg Tablet 10 Mg PO DAILY Guaifenesin 400 Mg Tablet 400 Mg PO TID PRN Dulera 200 Mcg/5 Mcg Inhaler (Mometasone/Formoterol) 13 Gm Hfa.aer.ad 2 Puff INH BID LAST FILLED 05-01-2020 #260 DAY SUPPLY Albuterol Sulfate 2.5 Mg/0.5 Ml Vial.neb 2.5 Mg INH QID PRN Proair Hfa (Albuterol Sulfate) 1 Puff Puff 2 Puff IH Q4 -6H PRN Assessment/Pt Instructions Take medications as prescribed. Complete your course of antibiotics even if you are feeling better. You'll need to continue quarantining for 10 days from when your symptoms began. The [facility] should be in contact with you for further information. You should follow-up with your primary care physician in about a week. You are already scheduled follow-up with pulmonology. Discharge Planning: >30 minutes discharge planning Discharge Instructions Discharge Diet: No Restrictions Activity as Tolerated: Yes Discharge Physical Examination Vital Signs Vital Signs Date Time Temp Pulse Resp B/P (MAP) Pulse Ox O2 Delivery O2 Flow Rate FiO2 08/10/20 10:39 95 92 08/10/20 10:31 Nasal Cannula 1.00 08/10/20 07:49 36.6 20 133/74 (93) 08/07/20 16:25 21 General Appearance: No Apparent Distress, Thin Respiratory: Lungs Clear, Decreased Breath Sounds Cardiovascular: Regular Rate, Rhythm, No Edema, No Murmur Gastrointestinal: Normal Bowel Sounds, Non Tender, Soft Extremity: Normal Inspection, Non Tender, No Pedal Edema Skin: Normal Color, Warm/Dry Neurologic/Psychiatric: Alert, Oriented x3, No Motor/Sensory Deficits, Normal Mood/Affect Allergies: Coded Allergies: No Known Drug Allergies (Unverified , 08/07/20) Copy Copies To 1: FREDERIC BANKS DO Discharge Summary Date of Admission Aug 07, 2020 at 14:07 Date of Discharge Discharge Date: Aug 10, 2020 Discharge Time: 11:24 Admission Diagnosis Acute respiratory failure due to COVID-19 Discharge Diagnosis Acute respiratory failure due to COVID-19, Sepsis due to pneumonia (1) Acute respiratory failure due to COVID-19 Status: Acute (2) Sepsis due to pneumonia Status: Acute (3) Hypercoagulable state associated with COVID-19 Status: Acute (4) COPD (chronic obstructive pulmonary disease) Status: Chronic (5) BPH (benign prostatic hyperplasia) Status: Chronic (6) Current every day smoker Status: Acute DANIELLE GREENE MD Aug 10, 2020 11:24
== END 2020-08-10 12:30 | disposition home or self-care (01) | DRG 871 ==
LOC: EDUNIT# 10:51 → ER 10:53 → 4TH 14:07
PROVIDERS: ADMIT Internal Medicine; ATTEND Internal Medicine
PROC: XW13325 Transfusion of Convalescent Plasma (Nonautologous) into Peripheral Vein, Percutaneous Approach, New Technology Group 5 (ICD-10-PCS; principal; 2020-08-08)
DX: A41.89 Other specified sepsis (principal); U07.1 COVID-19; J12.82 Pneumonia due to coronavirus disease 2019; J96.01 Acute respiratory failure with hypoxia; J44.0 Chronic obstructive pulmonary disease with (acute) lower respiratory infection; J44.1 Chronic obstructive pulmonary disease with (acute) exacerbation; D68.59 Other primary thrombophilia; N40.0 Benign prostatic hyperplasia without lower urinary tract symptoms; F17.210 Nicotine dependence, cigarettes, uncomplicated; F41.9 Anxiety disorder, unspecified
CPT/HCPCS: 36415; 71045; 80048; 80053; 81000; 82962; 83605; 84145; 85007; 85025; 85027; 85379; 85610; 85730; 86141; 86900; 86901; 87040; 87088; 87635; 87804; 94640; 94760; 94761

== ENCOUNTER → 2020-08-29 | Outpatient (CLI) | payer MEDICARE, OTHER ==
[~2020-08-29] MED LIST: ACET-2267 PO; ALB0.5V INH; CATHETER FLUSH 10 ML SYR IV PRN; CEFD300C3 PO; GUAI400T86 PO; HOLD METFORMIN - RECEIVED CONTRAST 20 ML VIAL IV SCH; IOHEXOL 350 MG/ML 100 ML (OMNIPAQUE 350) VIAL IV ONE; MOME13HF INH; MONT10TA32 PO; NAPR-915 PO; NS 100 ML (IVPB) BAG IV ONE; RT-ALBUINH IH; TIOT4MIS2 IH; TMSL.4C PO
[2020-08-29 08:28] LABS: BUN/CREATININE RATIO 21; CREATININE SERUM 1.04 MG/DL (0.60-1.30); GFR ESTIMATED > 60
--- NOTE | 2020-08-29 13:03 | Diagnostic Imaging Report ---
PROCEDURE: CT chest with contrast only. TECHNIQUE: Multiple contiguous axial images were obtained through the chest after administration of intravenous contrast. Auto Exposure Controls were utilized during the CT exam to meet ALARA standards for radiation dose reduction. INDICATION: Dyspnea. COMPARISON: 08/07/2020 FINDINGS: Right hilar lymph node is mildly enlarged measuring 1.3 cm in short dimension. Right paratracheal lymph nodes are also noted to be at the upper limits of normal in size. Multiple calcified left hilar lymph nodes are present. Mild scattered vascular calcifications, including within the coronary arteries. No aneurysmal dilatation of thoracic aorta. The heart is within normal limits in size. No significant pericardial effusion. No significant pleural effusion. No pneumothorax. Severe background predominantly centrilobular emphysematous changes are present. Calcified granuloma within the peripheral left upper lobe. A 0.4 cm left lower lobe pulmonary nodule, series 5, image 90. Additional mild tree-in-bud nodularity is noted within the left lower lobe. Irregular subpleural 1.7 x 1.3 cm nodular density is noted within the posterior aspect of the right lower lobe. Additional subpleural atelectasis versus fibrosis noted within the right lower lobe. Extensive dense consolidation is noted within the right upper lobe with associated bronchiectatic changes and cavitary changes. This region measures at least 13.8 x 8.6 x 8.1 cm. Calcified splenic granuloma. Left renal cyst. Prominence of the left adrenal gland. Mild scattered osseous degenerative changes without acute osseous abnormality. IMPRESSION: Dense irregular cavitary consolidation within the right upper lobe with associated bronchiectatic changes. This appears relatively similar to prior radiographs approximately 1 month prior. This is favored to relate to an underlying infectious etiology though neoplasm would be an additional consideration. Recommend tissue sampling via bronchoscopy or CT for further evaluation. Severe background emphysematous changes with additional regions of fibrosis and pulmonary nodularity as described above. Most prominent focal nodules within the posterior aspect of the right lower lobe which may simply relate to scarring. Recommend comparison to prior imaging if available. If no prior imaging is available, a follow-up CT of the chest in 3 months is recommended. Minimal tree-in-bud nodularity within the left lower lobe, felt related to small airway versus small vessel infection or inflammation. Prominence of the left adrenal gland. Mildly enlarged right hilar lymph node, likely reactive in nature. Evidence of chronic granulomatous disease. Dictated by: Dictated on workstation # [id number]
== END ==
LOC: LAB FS 07:51
PROVIDERS: ATTEND Internal Medicine Critical Care Medicine
DX: J43.2 Centrilobular emphysema (principal)
CPT/HCPCS: 36415; 71260; 82565; 84520

== ENCOUNTER → 2020-09-03 | Outpatient (CLI) | payer MEDICARE, OTHER ==
--- NOTE | 2020-09-03 09:54 | Diagnostic Imaging Report ---
PROCEDURE: CT abdomen and pelvis with and without contrast. TECHNIQUE: Precontrast acquisitions were acquired through the abdomen and pelvis. Multiple contiguous axial images were obtained through the abdomen and pelvis after the administration of intravenous contrast. Auto Exposure Controls were utilized during the CT exam to meet ALARA standards for radiation dose reduction. INDICATION: Weight loss. COMPARISON: No prior studies are available for comparison. FINDINGS: No discrete liver mass is detected. The gallbladder is unremarkable. The pancreas and spleen are unremarkable. No adrenal mass is identified. The right kidney contains a tiny cortical low density, consistent with a cyst. There is a cyst in the lower pole of the left kidney measuring 3.7 cm. The aorta is heavily calcified but nonaneurysmal. The bowel loops are of normal caliber. There is no obstruction. There is moderate stool in the colon. The bladder appears to be thick-walled but no discrete mass is seen. The prostate is unremarkable. The bony structures are nonacute. No definite abdominal or pelvic lymphadenopathy is seen. IMPRESSION: 1. Renal cysts. 2. Prostatomegaly. 3. Moderate stool is suggestive of constipation. 4. Generalized bladder wall thickening but no discrete bladder mass is detected. Dictated by: Dictated on workstation # [id number]
== END ==
LOC: RAD FS 07:48
PROVIDERS: ATTEND Nurse Practitioner
DX: N28.1 Cyst of kidney, acquired (principal); R63.4 Abnormal weight loss; N40.1 Benign prostatic hyperplasia with lower urinary tract symptoms
CPT/HCPCS: 74178

== ENCOUNTER → 2020-09-11 | Outpatient (CLI) | payer MEDICARE, OTHER ==
[~2020-09-11] MED LIST changes: -CATHETER FLUSH 10 ML SYR IV PRN; -HOLD METFORMIN - RECEIVED CONTRAST 20 ML VIAL IV SCH; -IOHEXOL 350 MG/ML 100 ML (OMNIPAQUE 350) VIAL IV ONE; -NS 100 ML (IVPB) BAG IV ONE; +RT-ALBUTEROL SULF 2.5 MG/3 ML PRE-MIX VIAL INH ONE
== END ==
LOC: RT 08:21
PROVIDERS: ATTEND Internal Medicine Critical Care Medicine
DX: R06.00 Dyspnea, unspecified (principal)
CPT/HCPCS: 94060; 94726; 94729

== ENCOUNTER 2020-09-15 12:58 | Outpatient (CLI) | payer MEDICARE, OTHER ==
[~2020-09-15] VITALS: Ht 182.9 cm; Wt 62.9 kg
== END 2020-09-15 15:56 | disposition home or self-care (01) ==
LOC: PREOP 12:58
PROVIDERS: ATTEND Internal Medicine Critical Care Medicine
DX: Z01.818 Encounter for other preprocedural examination (principal)

== ENCOUNTER → 2020-09-15 | Outpatient (CLI) | payer MEDICARE, OTHER ==
[~2020-09-15] MED LIST changes: -RT-ALBUTEROL SULF 2.5 MG/3 ML PRE-MIX VIAL INH ONE
[2020-09-15 11:21] LABS: BASOPHILS % (AUTO) 0 % (0-10); EOSINOPHILS # (AUTO) 0.2 10^3/uL (0.0-0.3); EOSINOPHILS % (AUTO) 3 % (0-10); HEMATOCRIT 35 % (40-54); HEMOGLOBIN 10.7 g/dL (13.3-17.7); LYMPHOCYTES # (AUTO) 1.6 10^3/uL (1.0-4.0); LYMPHOCYTES % (AUTO) 21 % (12-44); MEAN CORPUSCULAR HEMOGLOBIN 29 pg (25-34); MEAN CORPUSCULAR HGB CONC 31 g/dL (32-36); MEAN CORPUSCULAR VOLUME 96 fL (80-99); MEAN PLATELET VOLUME 8.2 fL (9.0-12.2); MONOCYTES # (AUTO) 0.7 10^3/uL (0.0-1.0); MONOCYTES % (AUTO) 9 % (0-12); NEUTROPHILS # (AUTO) 5.2 10^3/uL (1.8-7.8); NEUTROPHILS % (AUTO) 66 % (42-75); PLATELET COUNT 299 10^3/uL (130-400); WHITE BLOOD COUNT 7.8 10^3/uL (4.3-11.0)
== END ==
LOC: LAB 11:01
PROVIDERS: ATTEND Nurse Practitioner Family
DX: J44.9 Chronic obstructive pulmonary disease, unspecified (principal)
CPT/HCPCS: 36415; 85025

== ENCOUNTER → 2020-09-16 | Outpatient (CLI) | payer MEDICARE, OTHER | LOC: LABNPT 08:43 | PROVIDERS: ATTEND Internal Medicine Critical Care Medicine | DX: Z01.89 Encounter for other specified special examinations (principal); Z20.822 Contact with and (suspected) exposure to COVID-19 | CPT/HCPCS: 87635 ==

== ENCOUNTER 2020-09-17 07:14 | Day surgery (SDC) | payer MEDICARE, OTHER ==
[~2020-09-17] VITALS: Ht 183 cm; Wt 63.0 kg
[2020-09-17] VITALS (8 sets, daily range): BP systolic 105–173; BP diastolic 61–80
[2020-09-17] MEDS ORDERED: LIDOCAINE PF 1% 2 ML VIAL IJ ONE (07:15)
[2020-09-17] MEDS ORDERED: LIDOCAINE JELLY 2% 6 ML SYRINGE MM ONE (07:15)
[2020-09-17] MEDS ORDERED: LIDOCAINE PF 2% 5 ML (XYLOCAINE) VIAL INJ ONE (07:15)
[2020-09-17] MEDS ORDERED: NS IV 500 ML 500 ML IV PRN (08:15)
[2020-09-17] MEDS ORDERED: MIDAZOLAM 5 MG/5 ML (VERSED) VIAL IV ONE (08:15)
[2020-09-17] MEDS ORDERED: fentaNYL INJ 100 MCG/2 ML AMP IVP ONE (08:15)
[2020-09-17] MEDS ORDERED: fentaNYL INJ 100 MCG/2 ML AMP ONE (08:29)
[2020-09-17] MEDS ORDERED: MIDAZOLAM 5 MG/5 ML (VERSED) VIAL ONE (08:30)
[2020-09-17] MEDS ORDERED: NS IV 500 ML 500 ML ONE (08:35)
--- NOTE | 2020-09-17 09:20 | Pulmonary Procedures ---
Pulmonary Procedures Date of Procedure Date of Service: Sep 17, 2020 Bronch Bronchoscopy with bilateral bronchial washes and, RUL BAL. Preop DX RUL PNA Postop DX: same No endobronchial mass. Pt had copious amounts of sputum. Complications: none After informed consent obtained and formal time out pt was sedated using Fentanyl and Versed. Bronchoscope was advanced through the nare and vocal cords. 1% lidocaine was used to anesthetize vocal cords, epiglottis, julio, and left/right main stem bronchus. An anatomical tour was undertaken down to the segmental bronchi bilaterally. No endobronchial lesions noted. Bronchoscopy with bilateral bronchial washes and, RUL BAL were obtained. Pt tolerated procedure well. No complications noted. Stat CXR is pending. FREDERIC BANKS DO Sep 17, 2020 09:20
--- NOTE | 2020-09-17 09:22 | Progress Note-Pre Operative ---
Pre-Operative Progress Note H&P Reviewed The H&P was reviewed, patient examined and no changes noted. Time Seen by Provider: 09:22 Date H&P Reviewed: Sep 17, 2020 Time H&P Reviewed: :22 Pre-Operative Diagnosis: FREDERIC TYLER DO Sep 17, 2020 09:22
--- NOTE | 2020-09-17 09:23 | Pre-Op Note & Conscious Sedat ---
Pre-Operative Progress Note H&P Reviewed The H&P was reviewed, patient examined and no changes noted. Date H&P Reviewed: Sep 17, 2020 Time H&P Reviewed: 09:23 Conscious Sedation Pre-Proced Time 09:22 ASA Score 3 For ASA 3 and 4: Consider anesthesia and medical clearance. Also, for patients with a history of failed moderate sedation consider anesthesia. Airway Lungs Heart ASA score ASA 1: a normal healthy patient ASA 2: a patient with a mild systemic disease (mid diabetes, controlled hypertension, obesity ASA 3: a patient with a severe systemic disease that limits activity (angina, COPD, prior Myocardial infarction) ASA 4: a patient with an incapacitating disease that is a constant threat to life (CHF, renal failure) ASA 5: a moribund patient not expected to survive 24 hrs. (ruptured aneurysm) ASA 6: a declared brain- patient whose organs are being harvested. For emergent operations, add the letter E after the classification Mallampati Classification Grade 2 Sedation Plan Analgesia, Amnesia, Plan communicated to team members, Discussed options with patient/fam, Discussed risks with patient/fam The patient is an appropriate candidate to undergo the planned procedure, sedation, and anesthesia. The patient immediately re-assessed prior to indication. FREDERIC BANKS DO Sep 17, 2020 09:23
[2020-09-17] MEDS ORDERED: RT-ALBUTEROL/IPRATROPIUM 3 ML (DUONEB) VIAL INH STA (09:26)
--- NOTE | 2020-09-17 09:59 | Diagnostic Imaging Report ---
INDICATION: Post bronchoscopy, right upper lobe infiltrate. COMPARISON: 08/07/2020 FINDINGS: Single view chest demonstrates slightly more consolidation in the right upper lobe with some improved aeration in the periphery. There is no post procedure pneumothorax or effusion. IMPRESSION: No post procedure pneumothorax identified. Dictated by: Dictated on workstation # [id number]
[2020-09-24] MEDS ORDERED: CEFE2FRO IV ×2 (11:22)
== END 2020-09-17 10:06 | disposition home or self-care (01) ==
LOC: ENDO 07:14
PROVIDERS: ATTEND Internal Medicine Critical Care Medicine
DX: J18.1 Lobar pneumonia, unspecified organism (principal); R91.8 Other nonspecific abnormal finding of lung field; J44.9 Chronic obstructive pulmonary disease, unspecified; Z79.51 Long term (current) use of inhaled steroids; Z79.899 Other long term (current) drug therapy
CPT/HCPCS: 71045; 87015; 87070; 87077; 87101; 87116; 87186; 87205; 87206; 94640

== ENCOUNTER 2020-09-23 09:35 | Observation (INO) | payer MEDICARE, OTHER ==
[~2020-09-23] VITALS: Ht 183 cm; Wt 63.0 kg
[2020-09-23] MEDS ORDERED: RT-ALBUTEROL/IPRATROPIUM 3 ML (DUONEB) VIAL IH PRN (12:30)
[2020-09-23] MEDS ORDERED: NAPROXEN 250 MG (NAPROSYN) TABLET PO PRN (12:30)
[2020-09-23] MEDS ORDERED: ONDANSETRON 4 MG/2 ML (SDV) Z0FRAN IV PRN ×2 (12:30→16:45)
[2020-09-23] MEDS ORDERED: CATHETER FLUSH 10 ML SYR IV PRN (12:30)
[2020-09-23] MEDS ORDERED: ALPRAZolam 0.5 MG (XANAX) TAB PO PRN (12:30)
[2020-09-23 12:37] VITALS: BP 129/73
[2020-09-23 12:51] LABS: BASOPHILS % (AUTO) 1 % (0-10); EOSINOPHILS # (AUTO) 0.3 10^3/uL (0.0-0.3); EOSINOPHILS % (AUTO) 3 % (0-10); HEMATOCRIT 33 % (40-54); LYMPHOCYTES % (AUTO) 25 % (12-44); MEAN CORPUSCULAR HEMOGLOBIN 29 pg (25-34); MEAN CORPUSCULAR HGB CONC 31 g/dL (32-36); MEAN CORPUSCULAR VOLUME 96 fL (80-99); MEAN PLATELET VOLUME 9.2 fL (9.0-12.2); MONOCYTES # (AUTO) 0.8 10^3/uL (0.0-1.0); MONOCYTES % (AUTO) 9 % (0-12); NEUTROPHILS # (AUTO) 5.2 10^3/uL (1.8-7.8); NEUTROPHILS % (AUTO) 63 % (42-75); PLATELET COUNT 294 10^3/uL (130-400); WHITE BLOOD COUNT 8.3 10^3/uL (4.3-11.0)
[2020-09-23] MEDS ORDERED: ENOXAPARIN 40 MG/0.4 ML (LOVENOX) SYR SC SCH (13:00)
[2020-09-23 13:04] LABS: ALBUMIN 3.5 GM/DL (3.2-4.5)
[2020-09-23 13:06] LABS: CALCIUM 9.1 MG/DL (8.5-10.1)
[2020-09-23 13:07] LABS: TOTAL PROTEIN 7.2 GM/DL (6.4-8.2)
[2020-09-23 13:09] LABS: BILIRUBIN,TOTAL 0.3 MG/DL (0.1-1.0)
[2020-09-23 13:10] LABS: PHOSPHORUS 2.5 MG/DL (2.3-4.7)
[2020-09-23 13:11] LABS: CREATININE SERUM 1.18 MG/DL (0.60-1.30)
[2020-09-23] MEDS: LACTATED RINGERS 1,000 ML IV SCH ×2 (13:30→14:52)
[2020-09-23] MEDS: TOBRAMYCIN (NEBCIN) 80 MG/2 ML VIAL IH SCH ×2 (14:33→20:27)
[2020-09-23] MEDS: RT-ALBUTEROL/IPRATROPIUM 3 ML (DUONEB) VIAL IH SCH ×3 (14:33→20:27)
--- NOTE | 2020-09-23 14:45 | Diagnostic Imaging Report ---
INDICATION: PICC line placement. COMPARISON: 09/17/2020 TECHNIQUE: Single radiograph of the chest 09/23/2020. FINDINGS: Interval placement of right-sided PICC line with the distal tip overlying the mid aspect of the superior vena cava. No pneumothorax. The cardiac silhouette is within normal limits in size. No significant pulmonary vascular congestion. The left lung remains clear. Significant consolidation and cavitary changes within the right upper lung are again identified, appearing similar to the prior examination. No new focal pulmonary opacity. No pleural effusion. No new acute osseous abnormality. IMPRESSION: Interval placement of right-sided PICC line with the distal tip overlying the mid aspect of the superior vena cava without pneumothorax. Stable appearing consolidation with cavitary changes within the right upper lung. Dictated by: Dictated on workstation # [id number]
[2020-09-23] MEDS: CEFEPIME 2,000 MG/SWFI 20 ML IV PUSH IV SCH ×4 (14:52→21:30)
[2020-09-23 16:00] VITALS: BP 121/56
--- NOTE | 2020-09-23 16:14 | History & Physical-Hospitalist ---
History of Present Illness HPI/Chief Complaint Pt is a 75yoCM with a PMH of COPD, active tobacco abuse, and recent COVID diagnosis in July of this year. He has had persistent dyspnea and has been following with Dr Spear for this. Last week he had a bronchoscopy done as an outpatient and cultures revealed pseudomonas. He was also feeling more weak, fatigued, and dizzy. He was admitted for IV abx. He denies any fevers and clinically appears well. 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 Source: patient Date Seen 09/23/20 Time Seen by a Provider: 16:11 Attending Physician Moriah Norman MD PCP No,Local Physician Referring Physician Date of Admission Sep 23, 2020 at 11:57 Home Medications & Allergies Home Medications Reviewed patient Home Medication Reconciliation performed by pharmacy medication reconciliations optical laboratory technician and/or nursing. Patients Allergies have been reviewed. Allergies Allergies Coded Allergies No Known Drug Allergies (Unverified08/07/20) Patient Social History Marrital Status: Employed/Student: employed Smoking Status: Current Everyday Smoker Alcohol Use?: No Immunizations Up To Date Tetanus Booster (TDap): More Than 5 Years Hepatitis A: No Hepatitis B: No TB Skin Test: Negative Current Status Primary Language: Chinese Past Medical History Emphysema, COVID in 08/10, testicular cancer s/p orchiectomy Family Medical History Family Hx: No pertinent family history Review of Systems Constitutional: No diaphoresis, No fever; malaise EENTM: no symptoms reported Respiratory: cough, short of breath Cardiovascular: no symptoms reported Gastrointestinal: no symptoms reported Genitourinary: no symptoms reported Musculoskeletal: no symptoms reported Skin: no symptoms reported Psychiatric/Neurological: No Symptoms Reported, Other (dizzy) Physical Exam Physical Exam Vital Signs Vital Signs - First Documented 09/23/20 12:37 Temp 36.5 Pulse 65 Resp 18 B/P (MAP) 129/73 (91) Pulse Ox 95 O2 Delivery Room Air Capillary Refill : Height, Weight, BMI Height: '" Weight: lbs. oz. kg; 18.81 BMI Method: General Appearance: No Apparent Distress, Chronically ill, Thin HEENT: PERRL/EOMI, Moist Mucous Membranes; No Scleral Icterus (L), No Scleral Icterus (R) Neck: Normal Inspection, Supple Respiratory: No Accessory Muscle Use, No Respiratory Distress, Decreased Breath Sounds Cardiovascular: Regular Rate, Rhythm, No JVD, No Murmur Gastrointestinal: Normal Bowel Sounds, Non Tender, Soft Extremity: No Calf Tenderness, No Pedal Edema Neurologic/Psychiatric: Alert, Oriented x3, Normal Mood/Affect Results Results/Procedures Labs Laboratory Tests 09/23/20 12:30 Patient resulted labs reviewed. Imaging: Reviewed Imaging Report Imaging [facility], [place] NAME: STEVE SCHULTE [facility] REC#: [id number] PT STATUS: ADM Srinivasan : 1945 PHYSICIAN: MORIAH NORMAN MD ADMIT DATE: 09/23/20 Signed Date of Exam:09/23/20 CHEST 1 VIEW, AP/PA ONLY INDICATION: PICC line placement. COMPARISON: 09/17/2020 TECHNIQUE: Single radiograph of the chest 09/23/2020. FINDINGS: Interval placement of right-sided PICC line with the distal tip overlying the mid aspect of the superior vena cava. No pneumothorax. The cardiac silhouette is within normal limits in size. No significant pulmonary vascular congestion. The left lung remains clear. Significant consolidation and cavitary changes within the right upper lung are again identified, appearing similar to the prior examination. No new focal pulmonary opacity. No pleural effusion. No new acute osseous abnormality. IMPRESSION: Interval placement of right-sided PICC line with the distal tip overlying the mid aspect of the superior vena cava without pneumothorax. Stable appearing consolidation with cavitary changes within the right upper lung. Dictated by: Dictated on workstation # [id number] Dict: 09/23/20 1441 Trans: 09/23/20 1448 [facility] [id number] Interpreted by: DARNELL GRAHAM MD Electronically signed by: DARNELL GRAHAM MD 09/23/20 1448 Assessment/Plan Admission Diagnosis Pneumonia Admission Status: Inpatient Order (span 2 midnights) Reason for Inpatient Admission: see below Assessment and Plan Pneumonia Post COVID19 sequela Cultures from outpatient bronch grew pseudomonas Continue on Cefepime PICC placed as will need outpatient antibiotics Pulm consulted, appreciate assistance MAT protocol DVT ppx: Lovenox Diagnosis/Problems Diagnosis/Problems (1) Pneumonia Qualifiers: Pneumonia type: due to Pseudomonas Laterality: bilateral Lung location: unspecified part of lung Qualified Codes: J15.1 - Pneumonia due to Pseudomonas (2) Current every day smoker Status: Acute MORIAH NORMAN MD Sep 23, 2020 16:14
[2020-09-23 16:23] LABS: BILIRUBIN,URINE NEGATIVE (NEGATIVE); CLARITY,URINE CLEAR; COLOR,URINE YELLOW; GLUCOSE, URINE (UA) NEGATIVE (NEGATIVE); KETONES,URINE NEGATIVE (NEGATIVE); LEUKOCYTE ESTERASE ,URINE NEGATIVE (NEGATIVE); NITRITE,URINE NEGATIVE (NEGATIVE); PROTEIN,URINE NEGATIVE (NEGATIVE)
[2020-09-23] MEDS ORDERED: MELATONIN 3 MG TABLET PO PRN (16:45)
[2020-09-23] MEDS ORDERED: BENZONATATE 100 MG (TESSALON) CAPSULE PO PRN (16:45)
[2020-09-23] MEDS ORDERED: ACETAMINOPHEN 500 MG TAB (TYLENOL) PO PRN (16:45)
[2020-09-23] MEDS ORDERED: MILK OF MAGNESIA 400 MG/5 ML 30 ML UDC PO PRN (16:45)
[2020-09-23] MEDS ORDERED: ANTACID SUSP 30 ML UDC (MYLANTA) PO PRN (16:45)
[2020-09-23] MEDS ORDERED: ACETAMINOPHEN 325 MG TABLET PO PRN (16:45)
[2020-09-23 17:05] LABS: BACTERIA,URINE NEGATIVE /HPF
[2020-09-23 20:00] VITALS: BP 108/62
[2020-09-23 23:24] VITALS: BP 131/70
[2020-09-24] MEDS: RT-ALBUTEROL/IPRATROPIUM 3 ML (DUONEB) VIAL IH SCH ×4 (02:03→14:39)
[2020-09-24 04:00] VITALS: BP 137/77
[2020-09-24] MEDS: CEFEPIME 2,000 MG/SWFI 20 ML IV PUSH IV SCH ×4 (05:10→13:33)
[2020-09-24] MEDS: LACTATED RINGERS 1,000 ML IV SCH (05:11)
--- NOTE | 2020-09-24 06:37 | Pulmonary Consultation ---
History of Present Illness History of Present Illness Date Seen by Provider: Sep 24, 2020 Time Seen by Provider: 06:35 Date of Admission Allergies and Home Medications Allergies Coded Allergies: No Known Drug Allergies (Unverified , 08/07/20) Home Medications Acetaminophen 500 Mg Tablet, 1,500-2,000 MG PO Q8H PRN for PAIN-MILD (1-4), (Reported) TAKES 3 TO 4 (500MG) TABS Albuterol Sulfate 1 Puff Puff, 2 PUFF IH Q4 -6H PRN for SHORTNESS OF BREATH, (Reported) Albuterol Sulfate 2.5 Mg/0.5 Ml Vial.neb, 2.5 MG INH QID PRN for SHORTNESS OF BREATH, (Reported) Guaifenesin 400 Mg Tablet, 400 MG PO TID PRN for CONGESTION, (Reported) Mometasone/Formoterol 13 Gm Hfa.aer.ad, 2 PUFF INH BID, (Reported) LAST FILLED 05-01-2020 #2/60 DAY SUPPLY Montelukast Sodium 10 Mg Tablet, 10 MG PO DAILY, (Reported) Naproxen 500 Mg Tablet, 500 MG PO BID PRN for PAIN-MILD (1-4), (Reported) Tamsulosin HCl 0.4 Mg Cap, 0.8 MG PO DAILY, (Reported) TAKES 2 (0.4MG) CAPS Tiotropium [place] 4 Gm Mist.inhal, 2 PUFF IH DAILY, (Reported) Past Fpuhuwv-Cvggse-Uvbfdg Hx Patient Social History Smoking Status: Current Everyday Smoker Type Used: Cigarettes 2nd Hand Smoke Exposure: Yes Recent Hopitalizations: No Have you traveled recently?: No Substance type: Marijuana Alcohol Use?: No Immunizations Up To Date Date of Influenza Vaccine: Mar 20, 2020 Seasonal Allergies Seasonal Allergies: Yes Past Medical History Surgeries: Yes Adenoidectomy, Testicular, Tonsillectomy Respiratory: Yes COPD Currently Using CPAP: No Cardiac: No Neurological: No Genitourinary: Yes ("flow problems") Musculoskeletal: No Endocrine: No HEENT: Yes Hearing Impairment: Hard of Hearing Cancer: Yes Testicular Did You Recieve Any Treatments: Yes What Type of Treatment Did You: Surgical Intervention Psychosocial: No Integumentary: No Blood Disorders: No Family Medical History No pertinent family history Review of Systems Time Seen by Provider: 06:35 Sepsis Event Evaluation Height, Weight, BMI Height: '" Weight: lbs. oz. kg; 18.81 BMI Method: Exam Exam Vital Signs Date Time Temp Pulse Resp B/P (MAP) Pulse Ox O2 Delivery O2 Flow Rate FiO2 09/24/20 04:00 36.6 64 16 137/77 (97) 93 Room Air 09/24/20 02:04 98 Room Air 09/24/20 01:00 63 09/23/20 23:24 36.7 62 14 131/70 (90) 94 Room Air 09/23/20 20:29 91 Room Air 09/23/20 20:00 Room Air 09/23/20 20:00 36.9 72 18 108/62 (77) 94 Room Air 09/23/20 19:00 72 09/23/20 16:17 Room Air 09/23/20 16:00 37.0 66 18 121/56 (77) 92 Room Air 09/23/20 15:03 74 09/23/20 14:33 91 Room Air 09/23/20 12:37 36.5 65 18 129/73 (91) 95 Room Air I & O 09/24/20 07:00 Intake Total 910 ml Output Total 860 ml Balance 50 ml Height & Weight Height: '" Weight: lbs. oz. kg; 18.81 BMI Method: General Appearance: No Apparent Distress, Chronically ill, Thin HEENT: PERRL/EOMI, Moist Mucous Membranes; No Scleral Icterus (L), No Scleral Icterus (R) Neck: Normal Inspection, Supple Respiratory: No Accessory Muscle Use, No Respiratory Distress, Decreased Breath Sounds Cardiovascular: Regular Rate, Rhythm, No JVD, No Murmur Extremity: No Calf Tenderness, No Pedal Edema Neurologic/Psychiatric: Alert, Oriented x3, Normal Mood/Affect Results Lab Laboratory Tests 09/23/20 12:30 Assessment/Plan Assessment/Plan Pseudomonus Pneumonia -Cefepime and plan for out pt Cefepime for total of 14days -Yordan SVNS Post COVID19 sequela Cultures from outpatient bronch grew pseudomonas Continue on Cefepime PICC placed as will need outpatient antibiotics Anemia -Monitor DVT ppx: Lovenox FREDERIC BANKS DO Sep 24, 2020 06:37
[2020-09-24 06:40] LABS: HEMOGLOBIN 10.6 g/dL (13.3-17.7); MEAN PLATELET VOLUME 8.8 fL (9.0-12.2); WHITE BLOOD COUNT 8.3 10^3/uL (4.3-11.0)
[2020-09-24 06:50] LABS: CHLORIDE 105 MMOL/L (98-107); POTASSIUM 5.2 MMOL/L (3.6-5.0); SODIUM 138 MMOL/L (135-145)
[2020-09-24 06:51] LABS: CALCIUM 9.2 MG/DL (8.5-10.1)
[2020-09-24 06:52] LABS: GLUCOSE 98 MG/DL (70-105)
[2020-09-24 06:53] LABS: CARBON DIOXIDE 22 MMOL/L (21-32)
[2020-09-24 06:56] LABS: CREATININE SERUM 1.05 MG/DL (0.60-1.30); GFR ESTIMATED > 60
[2020-09-24 06:57] LABS: BUN/CREATININE RATIO 21
[2020-09-24] MEDS: TOBRAMYCIN (NEBCIN) 80 MG/2 ML VIAL IH SCH (07:06)
[2020-09-24 07:09] VITALS: BP 144/72
[2020-09-24] MEDS ORDERED: ALPR0.5T7 PO ×2 (07:44)
[2020-09-24] MEDS ORDERED: CEFE2FRO IV ×2 (11:22)
--- NOTE | 2020-09-24 12:38 | Discharge Summary ---
Diagnosis/Chief Complaint Date of Admission Sep 23, 2020 at 11:57 Date of Discharge Discharge Date: Sep 24, 2020 Admission Diagnosis Pneumonia Primary Care Anita [facility]isp Discharge Diagnosis (1) Pneumonia (2) Current every day smoker Status: Acute Discharge Summary Procedures/Consulations Dr Spear- Pul Discharge Physical Exam Allergies: Coded Allergies: No Known Drug Allergies (Unverified , 08/07/20) Vitals & I&Os Vital Signs Date Time Temp Pulse Resp B/P (MAP) Pulse Ox O2 Delivery O2 Flow Rate FiO2 09/24/20 12:54 76 09/24/20 12:49 37.0 16 126/66 (86) 93 Room Air General Appearance: No Apparent Distress, WD/WN Respiratory: Lungs Clear, No Respiratory Distress Cardiovascular: Regular Rate, Rhythm, No Murmur Gastrointestinal: Normal Bowel Sounds, Soft Hospital Course Pt was admitted due to pneumonia due to pseudomonas. He was treated with IV Cefepime and did well. He will need 14 days of IV abx as and outpatient and was discharged home for home health to assist with IV abx and teaching. He is to follow with Dr Spear and his PCP through the [facility]. Labs (last 24 hrs) Laboratory Tests 09/24/20 06:00: White Blood Count 8.3, Red Blood Count 3.62L, Hemoglobin 10.6L, Hematocrit 35L, Mean Corpuscular Volume 95, Mean Corpuscular Hemoglobin 29, Mean Corpuscular Hemoglobin Concent 31L, Red Cell Distribution Width 16.9H, Platelet Count 301, Mean Platelet Volume 8.8L 09/24/20 06:30: Sodium Level 138, Potassium Level 5.2H, Chloride Level 105, Carbon Dioxide Level 22, Anion Gap 11, Blood Urea Nitrogen 22H, Creatinine 1.05, Estimat Glomerular Filtration Rate > 60, BUN/Creatinine Ratio 21, Glucose Level 98, Calcium Level 9.2 Patient resulted labs reviewed. Pending Labs Imaging: Reviewed Imaging Report Discussion & Recommendations Discharge Planning: >30 minutes discharge planning Discharge Home Medications: Active Scripts Active Cefepime 2 gm Injection (Cefepime HCl/Dextrose, Iso-Osm) 2 Gm/100 Ml Froz.piggy 2 Gm IV BID Reported Alprazolam 0.5 Mg Tablet 0.5 Mg PO HS PRN Tylenol Extra Strength (Acetaminophen) 500 Mg Tablet 1,500-2,000 Mg PO Q8H PRN TAKES 3 TO 4 (500MG) TABS Spiriva Respimat 2.5MCG/ACTUATION (Tiotropium [place]) 4 Gm Mist.inhal 2 Puff IH DAILY Flomax (Tamsulosin HCl) 0.4 Mg Cap 0.8 Mg PO DAILY TAKES 2 (0.4MG) CAPS Naproxen 500 Mg Tablet 500 Mg PO BID PRN Montelukast Sodium 10 Mg Tablet 10 Mg PO DAILY Guaifenesin 400 Mg Tablet 400 Mg PO TID PRN Dulera 200 Mcg/5 Mcg Inhaler (Mometasone/Formoterol) 13 Gm Hfa.aer.ad 2 Puff INH BID Albuterol Sulfate 2.5 Mg/0.5 Ml Vial.neb 2.5 Mg INH QID PRN Proair Hfa (Albuterol Sulfate) 1 Puff Puff 2 Puff IH Q4 -6H PRN Instructions to patient/family Please see electronic discharge instructions given to patient. Problem Qualifiers (1) Pneumonia: Pneumonia type: due to Pseudomonas Laterality: bilateral Lung location: unspecified part of lung Qualified Codes: J15.1 - Pneumonia due to Pseudomonas MORIAH GILBERT MD Sep 24, 2020 12:37
[2020-09-24 12:49] VITALS: BP 126/66
[2020-09-24] MEDS ORDERED: ENOXAPARIN 30 MG/0.3 ML (LOVENOX) SYR SC SCH (13:00)
[2020-09-24 16:07] VITALS: BP 130/69
[2020-09-24 18:13] VITALS: BP 130/69
[2020-09-24] MEDS ORDERED: TOBRAMYCIN (NEBCIN) 80 MG/2 ML VIAL IH SCH (21:00)
== END 2020-09-24 18:13 | disposition home health service (06) ==
LOC: 4TH 11:57 → UNDOADMOB 11:57 → 4TH 16:23 → UNDODISOB 09-24 17:28
PROVIDERS: ADMIT Family Medicine; ATTEND Family Medicine
DX: J15.1 Pneumonia due to Pseudomonas (principal); J43.9 Emphysema, unspecified; B94.8 Sequelae of other specified infectious and parasitic diseases; F17.210 Nicotine dependence, cigarettes, uncomplicated; Z79.51 Long term (current) use of inhaled steroids; Z85.47 Personal history of malignant neoplasm of testis; Z90.79 Acquired absence of other genital organ(s)
CPT/HCPCS: 36569; 71045; 76937; 80048; 80053; 81000; 83605; 83735; 84100; 85025; 85027; 87040; 94640 ×2; 94760 ×2; C1751; 36415; 99211; G0378

== ENCOUNTER → 2020-10-09 | Outpatient (CLI) | payer MEDICARE, OTHER ==
[~2020-10-09] MED LIST changes: +ALPR0.5T7 PO; +CEFE2FRO IV
== END ==
LOC: LAB 11:39
PROVIDERS: ATTEND Nurse Practitioner Family
DX: R05 Cough (principal)
CPT/HCPCS: 36415; 86480

== ENCOUNTER → 2020-10-23 | Outpatient (CLI) | payer MEDICARE, OTHER ==
[~2020-10-23] MED LIST changes: +CATHETER FLUSH 10 ML SYR IV PRN; +HOLD METFORMIN - RECEIVED CONTRAST 20 ML VIAL IV SCH; +IOHEXOL 350 MG/ML 100 ML (OMNIPAQUE 350) VIAL IV ONE; +NS 100 ML (IVPB) BAG IV ONE
[2020-10-23 08:54] LABS: ALKALINE PHOSPHATASE 95 U/L (40-136); BILIRUBIN,DIRECT 0.2 MG/DL (0.0-0.3); BILIRUBIN,TOTAL 0.2 MG/DL (0.1-1.0); BUN/CREATININE RATIO 29; CALCIUM 9.4 MG/DL (8.5-10.1); CARBON DIOXIDE 26 MMOL/L (21-32); CHLORIDE 103 MMOL/L (98-107); GFR ESTIMATED > 60; GLUCOSE 104 MG/DL (70-105); POTASSIUM 4.4 MMOL/L (3.6-5.0); SODIUM 136 MMOL/L (135-145)
[2020-10-23 08:55] LABS: ALANINE AMINOTRANSFERASE 12 U/L (0-55); ALBUMIN 3.9 GM/DL (3.2-4.5); HEMATOCRIT 38 % (40-54); HEMOGLOBIN 11.5 G/DL (13.3-17.7); MEAN CORPUSCULAR HEMOGLOBIN 29 PG (25-34); MEAN CORPUSCULAR HGB CONC 30 G/DL (32-36); MEAN CORPUSCULAR VOLUME 97 FL (80-99); TOTAL PROTEIN 7.4 GM/DL (6.4-8.2)
[2020-10-23 08:56] LABS: BASOPHILS % (AUTO) 0 % (0-10); EOSINOPHILS # (AUTO) 0.4 10^3/uL (0.0-0.3); EOSINOPHILS % (AUTO) 4 % (0-10); LYMPHOCYTES # (AUTO) 1.7 X 10^3 (1.0-4.0); LYMPHOCYTES % (AUTO) 19 % (12-44); MONOCYTES # (AUTO) 0.9 X 10^3 (0.0-1.0); MONOCYTES % (AUTO) 10 % (0-12); NEUTROPHILS % (AUTO) 67 % (42-75); PLATELET COUNT 277 10^3/uL (130-400)
--- NOTE | 2020-10-23 11:26 | Diagnostic Imaging Report ---
PROCEDURE: CT chest with contrast only. TECHNIQUE: Multiple contiguous axial images were obtained through the chest after administration of intravenous contrast. Auto Exposure Controls were utilized during the CT exam to meet ALARA standards for radiation dose reduction. INDICATION: Dyspnea. COMPARISON: Study of 09/03/2020. FINDINGS: Dense consolidative changes in the patient's right upper lobe are once again identified with an apical cystic cavitary focus in multiple zones of varicoid and cystic bronchiectasis and traction bronchiectasis. Anatomically this is unchanged at CT. A right lower paratracheal mediastinal node with an unchanged 1 cm short axis thickness is noted. A precarinal lymph node measures 1.8 x 1.1 cm today previously 2.0 x 1.5 cm. An AP window node with a short axis of 11 mm is unchanged. Few additional smaller lymph nodes are stable. There are diffuse changes of centrilobular emphysema throughout all five lobes with no new area of consolidation found. Some likely scarring in the subpleural right lower lobe is unchanged. No effusion or pneumothorax. The aorta is patent and nonaneurysmal. No airway foreign body or intraluminal mass seen. There is no pleural or pericardial effusion. No acute chest wall pathology. The body habitus is cachectic. The visualized upper abdomen shows an atherosclerotic aorta, left renal cysts and some low-density thickening of the left greater than right adrenal glands unchanged. No acute bony pathology. IMPRESSION: Severe consolidation bronchiectasis and cyst formation in the right upper lobe is unchanged as is diffuse centrilobular emphysema. Some borderline hilar and mediastinal lymph nodes either unchanged or smaller than on prior favored to be reactive. There has been no adverse interval development. Dictated by: Dictated on workstation # [id number]
[2020-10-23 16:01] LABS: URIC ACID 4.1 MG/DL (2.6-7.2)
== END ==
LOC: LAB FS 08:01
PROVIDERS: ATTEND Internal Medicine Critical Care Medicine
DX: Z13.83 Encounter for screening for respiratory disorder NEC (principal); J18.1 Lobar pneumonia, unspecified organism; J47.9 Bronchiectasis, uncomplicated; J98.4 Other disorders of lung; J43.2 Centrilobular emphysema; R91.8 Other nonspecific abnormal finding of lung field; Z79.899 Other long term (current) drug therapy
CPT/HCPCS: 36415; 71260; 80053; 80076; 84550; 85025; 86703

== ENCOUNTER → 2020-11-06 | Outpatient (CLI) | payer MEDICARE, OTHER ==
[~2020-11-06] MED LIST changes: -CATHETER FLUSH 10 ML SYR IV PRN; -HOLD METFORMIN - RECEIVED CONTRAST 20 ML VIAL IV SCH; -IOHEXOL 350 MG/ML 100 ML (OMNIPAQUE 350) VIAL IV ONE; -NS 100 ML (IVPB) BAG IV ONE
== END ==
LOC: LAB FS 10:46
PROVIDERS: ATTEND Nurse Practitioner Family
DX: R84.9 Unspecified abnormal finding in specimens from respiratory organs and thorax (principal)
CPT/HCPCS: 87015; 87116; 87206

== ENCOUNTER → 2020-11-09 | Outpatient (CLI) | payer MEDICARE, OTHER | LOC: LAB FS 10:16 | PROVIDERS: ATTEND Nurse Practitioner Family | DX: R84.9 Unspecified abnormal finding in specimens from respiratory organs and thorax (principal) | CPT/HCPCS: 87015; 87116; 87206 ==

== ENCOUNTER → 2020-11-12 | Outpatient (CLI) | payer MEDICARE, OTHER | LOC: LAB FS 10:16 | PROVIDERS: ATTEND Nurse Practitioner Family | DX: R84.9 Unspecified abnormal finding in specimens from respiratory organs and thorax (principal) | CPT/HCPCS: 87015; 87116; 87206 ==

== ENCOUNTER → 2021-01-26 | Outpatient (CLI) | payer MEDICARE ==
[~2021-01-26] MED LIST changes: +CATHETER FLUSH 10 ML SYR IV PRN; +HOLD METFORMIN - RECEIVED CONTRAST 20 ML VIAL IV SCH; +IOHEXOL 350 MG/ML 100 ML (OMNIPAQUE 350) VIAL IV ONE; +NS 100 ML (IVPB) BAG IV ONE
[2021-01-26 08:55] LABS: CREATININE SERUM 0.86 MG/DL (0.60-1.30)
--- NOTE | 2021-01-26 10:39 | Diagnostic Imaging Report ---
EXAMINATION: CT chest with intravenous contrast. TECHNIQUE: Multiple contiguous axial images were obtained through the chest after the uneventful administration of intravenous contrast. All CT scans use one or more of the following dose optimizing techniques: automated exposure control, MA and/or KvP adjustment based on patient size and exam type or iterative reconstruction. HISTORY: Abnormal chest CT. COMPARISON: 10/23/2020. FINDINGS: There is consolidation, cavitation, and architectural distortion in the right upper lobe. The most dense area of consolidation in the anterior portion of the right upper lobe has decreased in size measuring 2.8 x 3.2 cm, previously 5.0 x 4.4 cm as measured on the sagittal images. The lungs are severely emphysematous. There is an unchanged 10 x 6 mm right lower lobe nodule. No pleural effusion. No pneumothorax. There is no axillary or supraclavicular lymphadenopathy. There is no mediastinal lymphadenopathy. Heart size is normal. There are severe coronary artery calcifications. No pericardial effusion. Aorta is normal in caliber. Limited views of the upper abdomen are unremarkable. There are no suspicious osseus lesions. IMPRESSION: Slight improvement in the degree of consolidation with unchanged cavitation and architectural distortion in the right upper lobe. Differential includes sequela of prior severe infection and an ongoing atypical infection such as tuberculosis. The report was faxed to Infection Control by kvng@10:40 AM. Dictated by: Dictated on workstation # [id number]
== END ==
LOC: RAD FS 08:13
PROVIDERS: ATTEND Nurse Practitioner Family
DX: R91.8 Other nonspecific abnormal finding of lung field (principal)
CPT/HCPCS: 36415; 71260; 82565; 84520

== ENCOUNTER → 2021-02-20 | Outpatient (CLI) | payer MEDICARE ==
[~2021-02-20] MED LIST changes: -CATHETER FLUSH 10 ML SYR IV PRN; -HOLD METFORMIN - RECEIVED CONTRAST 20 ML VIAL IV SCH; -IOHEXOL 350 MG/ML 100 ML (OMNIPAQUE 350) VIAL IV ONE; -NS 100 ML (IVPB) BAG IV ONE
== END ==
LOC: LAB FS 02-18 08:09
PROVIDERS: ATTEND Nurse Practitioner Family
DX: Z00.01 Encounter for general adult medical examination with abnormal findings (principal)
CPT/HCPCS: 87015; 87116; 87206

== ENCOUNTER 2021-03-20 10:42 | Outpatient (CLI) | payer OTHER, MEDICARE ==
[~2021-03-20] VITALS: Ht 182.9 cm; Wt 62.3 kg
[2021-03-20] MEDS ORDERED: RIFA300C3 PO (10:56)
[2021-03-20] MEDS ORDERED: FERR324T4 PO (10:56)
[2021-03-20] MEDS ORDERED: ETHA400T31 PO (10:56)
[2021-03-20] MEDS ORDERED: ERYT-118 PO (10:56)
[2021-03-20] MEDS ORDERED: LATA7.5D OU (10:56)
[2021-03-20] MEDS ORDERED: CYAN100088 PO (10:56)
[2021-03-20] MEDS ORDERED: ASCO500T7 PO (10:56)
== END 2021-03-20 10:58 | disposition home or self-care (01) ==
LOC: PREOP 10:42
PROVIDERS: ATTEND Specialist
DX: Z01.818 Encounter for other preprocedural examination (principal)

== ENCOUNTER 2021-03-27 06:10 | Day surgery (SDC) | payer MEDICARE, OTHER ==
[~2021-03-27] VITALS: Ht 182.9 cm; Wt 62.3 kg
[~2021-03-27 06:10] MED LIST changes: +ASCO500T7 PO; +CYAN100088 PO; +ERYT-118 PO; +ETHA400T31 PO; +FERR324T4 PO; +LATA7.5D OU; +RIFA300C3 PO
[2021-03-27] MEDS ORDERED: MOXIFLOXACIN OPHTH SOLN 5 MG/ML 0.3 ML SYRINGE OP ONE (06:15)
[2021-03-27] MEDS ORDERED: POVIDONE (BETADINE) OPHTH SOLN 5% 30 ML OP ONE (06:15)
[2021-03-27] MEDS ORDERED: TIMOLOL MALEATE 0.5% 5 ML (TIMOPTIC) BTL OU PRN (06:15)
[2021-03-27] MEDS ORDERED: LIDOCAINE PF 1% 2 ML VIAL IR PRN (06:15)
[2021-03-27 06:20] VITALS: BP 110/73
[2021-03-27] MEDS: TETRACAINE 0.5% OPHTH SOLN 4 ML BTL (SINGLE DOSE ONLY) OU PRN ×4 (06:24→06:41)
[2021-03-27] MEDS: TROPICAMIDE 1% OPH SOLN (MYDRIACYL) 15 ML BTL OP SCH ×3 (06:30→06:41)
[2021-03-27] MEDS: PHENYLEPHRINE 10% OPHTH (NEO-SYN) 5 ML BTL OU SCH ×3 (06:30→06:41)
[2021-03-27] MEDS ORDERED: MIDAZOLAM 2 MG/2 ML (VERSED) VIAL ONE (07:24)
--- NOTE | 2021-03-27 07:31 | Ophthalmologist Pre-Op Note ---
Pre-Operative Progress Note H&P Reviewed The H&P was reviewed, patient examined and no changes noted. Date H&P Reviewed: Mar 27, 2021 Time H&P Reviewed: 07:31 Pre-Op Dx Cataract, Left Eye ANAMAIRA HIGHTOWER MD Mar 27, 2021 07:31
--- NOTE | 2021-03-27 07:52 | Ophthalmology Operative Report ---
Cataract removal/placement IOL PREOPERATIVE DIAGNOSIS: Cataract Left Eye POSTOPERATIVE DIAGNOSIS: Cataract Left Eye PROCEDURE: Cataract removal and placement of posterior chamber implant, left eye SURGEON: Shaquille Hightower ANESTHESIA: Topical with sedation COMPLICATIONS: None ESTIMATED BLOOD LOSS: Minimal DESCRIPTION OF PROCEDURE: After proper informed consent was obtained, the patient, a 75 male, was taken to the Operating Room and the left eye was anesthetized with tetracaine. The left eye was then prepped and draped in the usual manner. A wire lid speculum was placed. A paracentesis was made at the left hand position. Preservative free lidocaine was injected into the anterior chamber followed by viscoelastic. A clear corneal incision was made in the temporal position. A capsulorrhexis was preformed and the central nuclear and cortical material were removed. The posterior capsule was polished and an Damion 21.0 AU00T0 was placed into the capsular bag. The residual viscoelastic was aspirated and balanced saline solution was injected into the anterior chamber. Moxifloxacin was injected into the anterior chamber. The wound was checked and found to be water tight. The patient tolerated the procedure well without complications. SHAQUILLE HIGHTOWER MD Mar 27, 2021 07:52
[2021-03-27 07:58] VITALS: BP 110/73
[2021-03-27] MEDS ORDERED: acetaZOLAMIDE ER 500 MG CAP (DIAMOX SEQUELS) PO ONE (08:00)
--- NOTE | 2021-03-27 10:09 | Anesthesia-General Post-Op ---
MAC Patient Condition Mental Status/LOC: Same as Preop Cardiovascular: Satisfactory Nausea/Vomiting: Absent Respiratory: Satisfactory Pain: Controlled Complications: Absent Post Op Complications Complications None Follow Up Care/Instructions Patient Instructions None needed. Anesthesiology Discharge Order Discharge Order Patient is doing well, no complaints, stable vital signs, no apparent adverse anesthesia problems. No complications reported per nursing. MAXI SCHMITT CRNA Mar 27, 2021 10:09
== END 2021-03-27 08:00 | disposition home or self-care (01) ==
LOC: SDC 06:10
PROVIDERS: ATTEND Specialist
DX: H25.812 Combined forms of age-related cataract, left eye (principal); J44.9 Chronic obstructive pulmonary disease, unspecified; F17.200 Nicotine dependence, unspecified, uncomplicated; Z79.899 Other long term (current) drug therapy; Z85.47 Personal history of malignant neoplasm of testis

== ENCOUNTER 2021-04-03 08:10 | Outpatient (CLI) | payer OTHER | END 2021-04-03 14:14 | disposition home or self-care (01) | LOC: PREOP 08:10 | PROVIDERS: ATTEND Specialist | DX: Z01.818 Encounter for other preprocedural examination (principal) ==

== ENCOUNTER 2021-04-10 07:02 | Day surgery (SDC) | payer OTHER ==
[~2021-04-10] VITALS: Ht 182.9 cm; Wt 62.3 kg
[2021-04-10] MEDS: TETRACAINE 0.5% OPHTH SOLN 4 ML BTL (SINGLE DOSE ONLY) OU PRN ×4 (07:10→07:27)
[2021-04-10] MEDS ORDERED: POVIDONE (BETADINE) OPHTH SOLN 5% 30 ML OP ONE (07:15)
[2021-04-10] MEDS ORDERED: MOXIFLOXACIN OPHTH SOLN 5 MG/ML 0.3 ML SYRINGE OP ONE (07:15)
[2021-04-10] MEDS ORDERED: LIDOCAINE PF 1% 2 ML VIAL IR PRN (07:15)
[2021-04-10] MEDS ORDERED: TIMOLOL MALEATE 0.5% 5 ML (TIMOPTIC) BTL OU PRN (07:15)
[2021-04-10] MEDS: TROPICAMIDE 1% OPH SOLN (MYDRIACYL) 15 ML BTL OP SCH ×3 (07:16→07:27)
[2021-04-10] MEDS: PHENYLEPHRINE 10% OPHTH (NEO-SYN) 5 ML BTL OU SCH ×3 (07:16→07:27)
[2021-04-10 07:19] VITALS: BP 136/79
--- NOTE | 2021-04-10 08:06 | Ophthalmologist Pre-Op Note ---
Pre-Operative Progress Note H&P Reviewed The H&P was reviewed, patient examined and no changes noted. Date H&P Reviewed: Apr 10, 2021 Time H&P Reviewed: 08:05 Pre-Op Dx Cataract, Right Eye ANAMARIA HIGHTOWER MD Apr 10, 2021 08:06
[2021-04-10] MEDS ORDERED: MIDAZOLAM 2 MG/2 ML (VERSED) VIAL ONE (08:09)
--- NOTE | 2021-04-10 08:26 | Ophthalmology Operative Report ---
Cataract removal/placement IOL PREOPERATIVE DIAGNOSIS: Cataract Right Eye POSTOPERATIVE DIAGNOSIS: Cataract Right Eye PROCEDURE: Cataract removal and placement of posterior chamber implant, right eye SURGEON: Shaquille Hightower ANESTHESIA: Topical with sedation COMPLICATIONS: None ESTIMATED BLOOD LOSS: Minimal DESCRIPTION OF PROCEDURE: After proper informed consent was obtained, the patient, a 75 male, was taken to the Operating Room and the right eye was anesthetized with tetracaine. The right eye was then prepped and draped in the usual manner. A wire lid speculum was placed. A paracentesis was made at the left hand position. Preservative free lidocaine was injected into the anterior chamber followed by viscoelastic. A clear corneal incision was made in the temporal position. A capsulorrhexis was preformed and the central nuclear and cortical material were removed. The posterior capsule was polished and Damion 22.0 AU00T0 IOL was placed into the capsular bag. The residual viscoelastic was aspirated and balanced saline solution was injected into the anterior chamber. Moxifloxacin was injected into the anterior chamber. The wound was checked and found to be water tight. The patient tolerated the procedure well without complications. SHAQUILLE HIGHTOWER MD Apr 10, 2021 08:26
[2021-04-10 08:30] VITALS: BP 127/79
[2021-04-10] MEDS ORDERED: acetaZOLAMIDE ER 500 MG CAP (DIAMOX SEQUELS) PO ONE (08:30)
--- NOTE | 2021-04-10 08:32 | Anesthesia-General Post-Op ---
MAC Patient Condition Mental Status/LOC: Same as Preop Cardiovascular: Satisfactory Nausea/Vomiting: Absent Respiratory: Satisfactory Pain: Controlled Complications: Absent Post Op Complications Complications None Follow Up Care/Instructions Patient Instructions None needed. Anesthesiology Discharge Order Discharge Order Patient is doing well, no complaints, stable vital signs, no apparent adverse anesthesia problems. ANGELINE RANDLE DO Apr 10, 2021 08:32
== END 2021-04-10 08:31 | disposition home or self-care (01) ==
LOC: SDC 07:02
PROVIDERS: ATTEND Specialist
DX: H25.11 Age-related nuclear cataract, right eye (principal); J44.9 Chronic obstructive pulmonary disease, unspecified; H40.9 Unspecified glaucoma; F17.210 Nicotine dependence, cigarettes, uncomplicated; Z85.47 Personal history of malignant neoplasm of testis; Z79.899 Other long term (current) drug therapy

== ENCOUNTER → 2021-04-23 | Outpatient (CLI) | payer MEDICARE ==
[2021-04-23 11:23] LABS: POTASSIUM 4.5 MMOL/L (3.6-5.0)
[2021-04-23 11:24] LABS: ALBUMIN 4.1 GM/DL (3.2-4.5); BILIRUBIN,TOTAL 0.5 MG/DL (0.1-1.0); CALCIUM 9.5 MG/DL (8.5-10.1); CREATININE SERUM 1.02 MG/DL (0.60-1.30); TOTAL PROTEIN 7.6 GM/DL (6.4-8.2)
[2021-04-23 11:26] LABS: HEMOGLOBIN 13.5 g/dL (13.3-17.7); MEAN CORPUSCULAR HEMOGLOBIN 33 pg (25-34); WHITE BLOOD COUNT 5.9 10^3/uL (4.3-11.0)
[2021-04-23 11:27] LABS: HEMATOCRIT 41 % (40-54); MEAN CORPUSCULAR HGB CONC 33 g/dL (32-36); MEAN CORPUSCULAR VOLUME 100 fL (80-99); PLATELET COUNT 226 10^3/uL (130-400)
[2021-04-23 11:28] LABS: BASOPHILS % (AUTO) 1 % (0-10); EOSINOPHILS # (AUTO) 0.2 10^3/uL (0.0-0.3); EOSINOPHILS % (AUTO) 3 % (0-10); LYMPHOCYTES # (AUTO) 1.6 X 10^3 (1.0-4.0); LYMPHOCYTES % (AUTO) 26 % (12-44); MEAN PLATELET VOLUME 9.7 fL (9.0-12.2); MONOCYTES # (AUTO) 0.5 X 10^3 (0.0-1.0); MONOCYTES % (AUTO) 9 % (0-12); NEUTROPHILS # (AUTO) 3.6 X 10^3 (1.8-7.8); NEUTROPHILS % (AUTO) 61 % (42-75)
== END ==
LOC: LAB FS 10:08
DX: A31.0 Pulmonary mycobacterial infection (principal)
CPT/HCPCS: 36415; 80053; 85025; 87015; 87116; 87206

== ENCOUNTER 2021-10-01 09:58 | Emergency (ER) | payer MEDICARE ==
[~2021-10-01] VITALS: Ht 183 cm; Wt 59.0 kg
[~2021-10-01 09:58] MED LIST changes: +MONT-40 PO; -MONT10TA32 PO
--- NOTE | 2021-10-01 10:36 | ED Upper Extremity ---
General Chief Complaint: Upper Extremity Stated Complaint: R ARM PAIN Nursing Triage Note: pt states getting a tick bite under rt arm pit about 10 days ago. cc of rt arm pain and swelling in upper arm and elbow area. no fever at triage 36.2 Source: patient Exam Limitations: no limitations (NIGEL YANG MED STUDENT) History of Present Illness Date Seen by Provider: Oct 01, 2021 Time Seen by Provider: 10:22 Initial Comments Mr. Valderrama is a 76yo male with PMH COPD who presents to ED today due to R arm pain. States that the pain started several days ago in his underarm area. Pain was constant, felt sharp and rated about an 8. In the ED the pain has gone down a bit. He has had no trauma to the arm. Pain is on the surface of the skin on the triceps area of the arm from the armpit to just before the elbow. He also feels his arm is a bit swollen. Said he had a tick bite about 10 days ago in the same area. Denies any other symptoms. (NIGEL YANG MED STUDENT) Allergies and Home Medications Allergies Coded Allergies: No Known Drug Allergies (Unverified , 08/07/20) Patient Home Medication List Home Medication List Reviewed: Yes (JORGE LAKHANI) Acetaminophen (Tylenol Extra Strength) 500 Mg Tablet, 1,500-2,000 MG PO Q8H PRN for PAIN-MILD (1-4), (Reported) Entered as Reported by: TANK CHAPPELL on 08/08/20 1230 Albuterol Sulfate (Proair Hfa) 1 Puff Puff, 2 PUFF IH Q4 -6H PRN for SHORTNESS OF BREATH, (Reported) Entered as Reported by: TANK CHAPPELL on 08/08/20 1230 Albuterol Sulfate (Albuterol Sulfate) 2.5 Mg/0.5 Ml Vial.neb, 2.5 MG INH QID PRN for SHORTNESS OF BREATH, (Reported) Entered as Reported by: TANK CHAPPELL on 08/08/20 1230 Alprazolam (Alprazolam) 0.5 Mg Tablet, 0.5 MG PO HS PRN for ANXIETY, (Reported) Entered as Reported by: TANK CHAPPELL on 09/24/20 0744 Ascorbic Acid (Ascorbic Acid) 500 Mg Tablet, 500 MG PO DAILY, (Reported) Entered as Reported by: LETICIA BLACKMAN on 03/20/21 1056 Cyanocobalamin (Vitamin B-12) (B-12) 1,000 Mcg Tablet, 1,000 MCG PO DAILY, (Reported) Entered as Reported by: LETICIA BLACKMAN on 03/20/21 1056 Doxycycline Monohydrate (Doxycycline Monohydrate) 100 Mg Tablet, 100 MG PO BID Prescribed by: PHILOMENA CONCEPCION on 10/01/21 1258 Erythromycin Base (Erythromycin) 500 Mg Tablet.dr, 500 MG PO DAILY, (Reported) Entered as Reported by: LETICIA BLACKMAN on 03/20/21 1056 Ethambutol HCl (Ethambutol HCl) 400 Mg Tablet, 1,000 MG PO DAILY, (Reported) Entered as Reported by: LETICIA BLACKMAN on 03/20/21 1056 Ferrous Sulfate (Ferrous Sulfate) 324 Mg Tablet.dr, 324 MG PO DAILY, (Reported) Entered as Reported by: LETICIA BLACKMAN on 03/20/21 1056 Guaifenesin (Guaifenesin) 400 Mg Tablet, 400 MG PO TID PRN for CONGESTION, (Reported) Entered as Reported by: TANK CHAPPELL on 08/08/20 1230 Latanoprost/Pf (Latanoprost 0.005% Eye Drop) 7.5 Ml Drops, 1 DROP OU HS, (Reported) Entered as Reported by: LETICIA BLACKMAN on 03/20/21 1056 Mometasone/Formoterol (Dulera 200 Mcg/5 Mcg Inhaler) 13 Gm Hfa.aer.ad, 2 PUFF INH BID, (Reported) Entered as Reported by: TANK CHAPPELL on 08/08/20 1230 Montelukast Sodium (Montelukast Sodium) 10 Mg Tablet, 10 MG PO HS, (Reported) Entered as Reported by: TANK CHAPPELL on 08/08/20 1230 Rifampin (Rifampin) 300 Mg Capsule, 600 MG PO DAILY, (Reported) Entered as Reported by: LETICIA BLACKMAN on 03/20/21 1056 Tamsulosin HCl (Flomax) 0.4 Mg Cap, 0.8 MG PO DAILY, (Reported) Entered as Reported by: TANK CHAPPELL on 08/08/20 1230 Tiotropium [place] (Spiriva Respimat 2.5MCG/ACTUATION) 4 Gm Mist.inhal, 2 PUFF IH DAILY, (Reported) Entered as Reported by: TANK CHAPPELL on 08/08/20 1230 Discontinued Medications Doxycycline Monohydrate (Doxycycline Monohydrate) 100 Mg Tablet, 100 MG PO BID Prescribed by: PHILOMENA CONCEPCION on 10/01/21 1239 Review of Systems Constitutional: No chills, No fever Respiratory: No cough, No short of breath Cardiovascular: No chest pain, No palpitations Gastrointestinal: No abdominal pain, No constipation, No diarrhea, No nausea, No vomiting Genitourinary: No dysuria, No hematuria Musculoskeletal: No back pain, No joint pain Skin: other (Pain in the posterior R arm between armpit and elbow, minor dime sized bruise in the area as well. Sensation of swelling) Psychiatric/Neurological: Denies Headache, Denies Numbness, Denies Tingling, Denies Weakness (NIGEL YANG) Past Qvsanka-Ocqebc-Fvyydr Hx Patient Social History Tobacco Use?: Yes Tobacco type used: Cigarettes Smoking Status: Current Everyday Smoker Substance use?: Yes Substance type: Marijuana Alcohol Use?: No (NIGEL YANG) Immunizations Up To Date First/Initial COVID19 Vaccinat: 07/2020 (NIGEL YANG) Seasonal Allergies Seasonal Allergies: Yes (NIGEL YANG) Past Medical History Surgery/Hospitalization HX: hx of copd Surgeries: Yes Adenoidectomy, Testicular, Tonsillectomy Respiratory: Yes COPD Currently Using CPAP: No Cardiac: No Neurological: No Genitourinary: Yes ("flow problems") Musculoskeletal: No Endocrine: No HEENT: Yes Hearing Impairment: Hard of Hearing Cancer: Yes Testicular Did You Recieve Any Treatments: Yes What Type of Treatment Did You: Surgical Intervention Psychosocial: No Integumentary: No Blood Disorders: No (NIGEL YANG) Family Medical History No pertinent family history (NIGEL YANG) Physical Exam Vital Signs Vital Signs - First Documented 10/01/21 10:12 Temp 36.2 Pulse 75 Resp 18 B/P (MAP) 132/95 (107) Pulse Ox 98 O2 Delivery Room Air (JORGE LAKHANI) Vital Signs Capillary Refill : Less Than 3 Seconds (NIGEL YANG MED STUDENT) Height, Weight, BMI Height: '" Weight: lbs. oz. kg; 17.00 BMI Method: General Appearance: WD/WN, no apparent distress HEENT: PERRL/EOMI, pharynx normal Cardiovascular: normal peripheral pulses, regular rate, rhythm, no edema, no murmur Respiratory: chest non-tender, lungs clear, normal breath sounds Gastrointestinal: normal bowel sounds, non tender, soft Shoulder: normal inspection Elbow/Forearm: Right (Posterior side of R arm is tender to touch. There is a small bruise mid-way down the arm about the size of a dime. No redness or swelling noted. Normal ROM and Strangth in the Shoulder, Arm, Elbow, Wrist, and Hand on this side. ), Left (normal) Wrist: Yes normal inspection Hand: normal inspection Neurologic/Psychiatric: alert, normal mood/affect, oriented x 3 Skin: normal color, warm/dry (NIGEL YANG MED STUDENT) Progress/Results/Core Measures Results/Orders Lab Results Laboratory Tests Test 10/01/21 11:20 Range/Units White Blood Count 6.4 4.3-11.0 10^3/uL Red Blood Count 3.99 L 4.30-5.52 10^6/uL Hemoglobin 13.6 13.3-17.7 g/dL Hematocrit 42 40-54 % Mean Corpuscular Volume 105 H 80-99 fL Mean Corpuscular Hemoglobin 34 25-34 pg Mean Corpuscular Hemoglobin Concent 33 32-36 g/dL Red Cell Distribution Width 11.5 10.0-14.5 % Platelet Count 221 130-400 10^3/uL Mean Platelet Volume 9.2 9.0-12.2 fL Immature Granulocyte % (Auto) 0 % Neutrophils (%) (Auto) 70 42-75 % Lymphocytes (%) (Auto) 19 12-44 % Monocytes (%) (Auto) 8 0-12 % Eosinophils (%) (Auto) 3 0-10 % Basophils (%) (Auto) 1 0-10 % Neutrophils # (Auto) 4.4 1.8-7.8 10^3/uL Lymphocytes # (Auto) 1.2 1.0-4.0 10^3/uL Monocytes # (Auto) 0.5 0.0-1.0 10^3/uL Eosinophils # (Auto) 0.2 0.0-0.3 10^3/uL Basophils # (Auto) 0.0 0.0-0.1 10^3/uL Immature Granulocyte # (Auto) 0.0 0.0-0.1 10^3/uL Sodium Level 138 135-145 MMOL/L Potassium Level 4.9 3.6-5.0 MMOL/L Chloride Level 102 98-107 MMOL/L Carbon Dioxide Level 24 21-32 MMOL/L Anion Gap 12 5-14 MMOL/L Blood Urea Nitrogen 22 H 7-18 MG/DL Creatinine 1.03 0.60-1.30 MG/DL Estimat Glomerular Filtration Rate 74 BUN/Creatinine Ratio 21 Glucose Level 93 70-105 MG/DL Calcium Level 9.6 8.5-10.1 MG/DL Corrected Calcium 9.5 8.5-10.1 MG/DL Total Bilirubin 2.9 H 0.1-1.0 MG/DL Aspartate Amino Transf (AST/SGOT) 28 5-34 U/L Alanine Aminotransferase (ALT/SGPT) 18 0-55 U/L Alkaline Phosphatase 88 40-136 U/L C-Reactive Protein High Sensitivity 1.34 H 0.00-0.50 MG/DL Total Protein 7.9 6.4-8.2 GM/DL Albumin 4.1 3.2-4.5 GM/DL (JORGE LAKHANI) My Orders Orders - JORGE LAKHANI Us Venous Upper Ext Rt (10/01/21 11:18) Cbc With Automated Diff (10/01/21 11:18) Comprehensive Metabolic Panel (10/01/21 11:18) Hs C Reactive Protein (10/01/21 11:18) Elbow, Right, 3 Views (10/01/21 11:19) Clindamycin 600 Mg/50 Ml Ivpb (Cleocin P (10/01/21 12:45) (JORGE LAKHANI) Medications Given in ED Current Medications Medications Dose Ordered Sig/Fariba Route Start Time Stop Time Status Last Admin Dose Admin Clindamycin Phosphate/Dextrose 50 ml @ 100 mls/hr ONCE ONCE IV 10/01/21 12:45 4/14/22 13:14 DC 10/01/21 12:49 100 MLS/HR (JORGE LAKHANI) Vital Signs/I&O 10/01/21 10/01/21 10:12 13:20 Temp 36.2 36.2 Pulse 75 75 Resp 18 18 B/P (MAP) 132/95 (107) 138/92 Pulse Ox 98 98 O2 Delivery Room Air Room Air (JROGE LAKHANI) Blood Pressure Mean: 107 Departure Communication (PCP) Patient with some redness and swelling noted to the right medial elbow and behin d the right upper arm overlying the triceps. Does have a small area of bruising. No trauma. X-ray was negative for acute fracture. Soft tissue swelling noted. 6 mm radiodense possible foreign body in the ventral area of the right upper arm. Calcification versus foreign body. He denies of any known foreign body. Patient has appropriate range of motion without significant pain. It only appears to be on palpation. White blood count normal. Slight elevated CRP. Venous ultrasound was negative for DVT. Patient was given dose of clindamycin here. Concerning for skin infection. Unsure the etiology. Does have a's very small papule underneath his right axilla. But there is no surrounding redness or swelling to this location. He denies pulling off a tick. Possible spider bite. Area was marked here in the ED. We will try oral doxycycline. Discussed with family if this redness and swelling progress or worsen he needs to return back to ED for IV antibiotics. Does not appear toxic or septic. No fever. Continue monitoring. Discharged with pain medication. Patient does not a appear toxic or septic. (JORGE LAKHANI) Impression Primary Impression: Cellulitis Disposition: HOME, SELF-CARE Condition: Stable Departure-Patient Inst. Decision time for Depature: 12:38 (JORGE LAKHANI) Referrals: [facility] [place],LOCAL PHYSICIAN (PCP) Primary Care Physician Patient Instructions: Cellulitis (Skin Infection), Adult (DC) Add. Discharge Instructions: Recommend continue monitoring the swelling and redness. Area was marked. If this redness or swelling progress or worsen to return back to ED for further evaluation IV antibiotics. Follow-up your PCP in 2 to 3 days for reevaluation. Discharged with pain medication. Patient agrees with plan of action. Scripts Doxycycline Monohydrate (Doxycycline Monohydrate) 100 Mg Tablet 100 MG PO BID for 7 Days, #14 TAB Prov: JORGE LAKHANI 10/01/21 ATTENDING PHYSICIAN NOTE: I was physically present as attending physician in the emergency department during the care of this patient, but I was not directly involved in the decision making or delivery of care for this patient. (ROBERT WILEY MD) NIGEL YANG MED STUDENT Oct 01, 2021 10:36 JORGE LAKHANI Oct 01, 2021 11:20 ROBERT WILEY MD Oct 02, 2021 10:49
[2021-10-01 11:28] LABS: BASOPHILS % (AUTO) 1 % (0-10); EOSINOPHILS # (AUTO) 0.2 10^3/uL (0.0-0.3); EOSINOPHILS % (AUTO) 3 % (0-10); HEMATOCRIT 42 % (40-54); HEMOGLOBIN 13.6 g/dL (13.3-17.7); LYMPHOCYTES # (AUTO) 1.2 10^3/uL (1.0-4.0); LYMPHOCYTES % (AUTO) 19 % (12-44); MEAN CORPUSCULAR HEMOGLOBIN 34 pg (25-34); MEAN CORPUSCULAR HGB CONC 33 g/dL (32-36); MEAN CORPUSCULAR VOLUME 105 fL (80-99); MEAN PLATELET VOLUME 9.2 fL (9.0-12.2); MONOCYTES # (AUTO) 0.5 10^3/uL (0.0-1.0); MONOCYTES % (AUTO) 8 % (0-12); NEUTROPHILS # (AUTO) 4.4 10^3/uL (1.8-7.8); NEUTROPHILS % (AUTO) 70 % (42-75); PLATELET COUNT 221 10^3/uL (130-400); WHITE BLOOD COUNT 6.4 10^3/uL (4.3-11.0)
[2021-10-01 11:39] LABS: ALBUMIN 4.1 GM/DL (3.2-4.5); POTASSIUM 4.9 MMOL/L (3.6-5.0)
[2021-10-01 11:40] LABS: CALCIUM 9.6 MG/DL (8.5-10.1)
[2021-10-01 11:41] LABS: TOTAL PROTEIN 7.9 GM/DL (6.4-8.2)
[2021-10-01 11:43] LABS: BILIRUBIN,TOTAL 2.9 MG/DL (0.1-1.0)
[2021-10-01 11:45] LABS: CREATININE SERUM 1.03 MG/DL (0.60-1.30)
--- NOTE | 2021-10-01 11:49 | Diagnostic Imaging Report ---
Clinical indications: Patient got a tic bite under right arm pit about 10 days ago. Patient has right arm pain and swelling in the upper arm and elbow area. No fever. EXAM: X-ray of the right elbow, 3 views. Comparisons: None. FINDINGS: There is no acute fracture or dislocation. There are degenerative spurs involving the lateral distal humeral epicondylar region. There are degenerative spurs involving the coronoid process. There is a 6 mm amorphous dense object overlying the ventral aspect of the soft tissue adjacent to the distal humerus soft tissue. There is no soft tissue air. There is soft tissue swelling seen medially laterally adjacent to the elbow region. IMPRESSION: 1: There is no acute fracture or dislocation. 2: There is soft tissue swelling seen laterally adjacent to the elbow region. There is no soft tissue air or radiodense foreign object in the region. 3: There is a 6 mm dense area involving the ventral aspect of the soft tissue adjacent to the distal femoral soft tissue. This may represent a radiodense foreign object or calcification. Dictated by: Dictated on workstation # [id number]
--- NOTE | 2021-10-01 12:29 | Diagnostic Imaging Report ---
INDICATION: Right arm swelling. FINDINGS: The right internal jugular vein as well as the right subclavian and axillary veins are widely patent. The brachial vein is patent. The basilic, cephalic, as well as radial and ulnar veins are patent. No thrombus is seen. There is no fluid collection or mass. IMPRESSION: No evidence of right upper extremity DVT. Dictated by: Dictated on workstation # [id number]
[2021-10-01] MEDS ORDERED: DOXY100T31 PO ×2 (12:39→12:58)
[2021-10-01] MEDS ORDERED: CLINDAMYCIN 600 MG/50 ML IVPB 50 ML IV ONE (12:45)
[2021-10-01 13:20] VITALS: BP 138/92
== END 2021-10-01 13:20 | disposition home or self-care (01) ==
LOC: EDUNIT# 09:58 → ER 10:00
DX: L03.113 Cellulitis of right upper limb (principal); F17.210 Nicotine dependence, cigarettes, uncomplicated
CPT/HCPCS: 36415; 73080; 80053; 85025; 86141

== ENCOUNTER 2021-10-03 11:08 | Emergency (ER) | payer MEDICARE ==
[~2021-10-03] VITALS: Ht 185.4 cm; Wt 59.1 kg
[~2021-10-03 11:08] MED LIST changes: +DOXY100T31 PO
--- NOTE | 2021-10-03 11:19 | ED Integumentary General ---
General Chief Complaint: Skin/Wound Problems Stated Complaint: RT ARM INFECTION Source: patient (CRISTAL BALBUENA MD) History of Present Illness Date Seen by Provider: Oct 03, 2021 Time Seen by Provider: 11:19 Initial Comments This slender 76 y/o [employer] [place]) has painful red swollen area on right arm that began several days ago as a burning & itchy discomfort near right axilla. He scratched it a lot and subsequently developed redness and swelling and localized bruising and a blister. He was seen in ER yesterday at [facility] and got IV Clindamycin and sent home on Doxycycline and has less redness and more pain. he rates pain as 11/10 and it is localized to area of blistering and discoloration. He is tolerating the Doxycycline well in addition to his 3 dryg regimen for MAC. He reports pulling a tick from the axilla but never had localized lesion at that site and no new systemic sx or fever. His main reason for coming here today was PAIN and he feels his pain wasn't addressed yesterday at [facility] so he was reluctant to go back there. Timing/Duration: changing over time Location: extremities (right arm) Possible Cause: no cause identified Associated Symptoms: blisters, edema; No fever, No headache, No hives, No jaundice, No numbness, No pallor; paresthesia (intense pain and hyperalgesia to light touch); No sore throat (CRISTAL BALBUENA MD) Allergies and Home Medications Allergies Coded Allergies: No Known Drug Allergies (Unverified , 08/07/20) Patient Home Medication List Home Medication List Reviewed: Yes (CRISTAL BALBUENA MD) Acetaminophen (Tylenol Extra Strength) 500 Mg Tablet, 1,500-2,000 MG PO Q8H PRN for PAIN-MILD (1-4), (Reported) Entered as Reported by: TANK CHAPPELL on 08/08/20 1230 Albuterol Sulfate (Proair Hfa) 1 Puff Puff, 2 PUFF IH Q4 -6H PRN for SHORTNESS OF BREATH, (Reported) Entered as Reported by: TANK CHAPPELL on 08/08/20 1230 Albuterol Sulfate (Albuterol Sulfate) 2.5 Mg/0.5 Ml Vial.neb, 2.5 MG INH QID PRN for SHORTNESS OF BREATH, (Reported) Entered as Reported by: TANK CHAPPELL on 08/08/20 1230 Alprazolam (Alprazolam) 0.5 Mg Tablet, 0.5 MG PO HS PRN for ANXIETY, (Reported) Entered as Reported by: TANK CHAPPELL on 09/24/20 0744 Ascorbic Acid (Ascorbic Acid) 500 Mg Tablet, 500 MG PO DAILY, (Reported) Entered as Reported by: LETICIA BLACKMAN on 03/20/21 1056 Cyanocobalamin (Vitamin B-12) (B-12) 1,000 Mcg Tablet, 1,000 MCG PO DAILY, (Reported) Entered as Reported by: LETICIA BLACKMAN on 03/20/21 1056 Doxycycline Monohydrate (Doxycycline Monohydrate) 100 Mg Tablet, 100 MG PO BID Prescribed by: PHILOMENA CONCEPCION on 10/01/21 1258 Erythromycin Base (Erythromycin) 500 Mg Tablet.dr, 500 MG PO DAILY, (Reported) Entered as Reported by: LETICIA BLACKMAN on 03/20/21 1056 Ethambutol HCl (Ethambutol HCl) 400 Mg Tablet, 1,000 MG PO DAILY, (Reported) Entered as Reported by: LETICIA BLACKMAN on 03/20/21 1056 Ferrous Sulfate (Ferrous Sulfate) 324 Mg Tablet.dr, 324 MG PO DAILY, (Reported) Entered as Reported by: LETICIA BLACKMAN on 03/20/21 1056 Guaifenesin (Guaifenesin) 400 Mg Tablet, 400 MG PO TID PRN for CONGESTION, (Reported) Entered as Reported by: TANK CAHPPELL on 08/08/20 1230 Latanoprost/Pf (Latanoprost 0.005% Eye Drop) 7.5 Ml Drops, 1 DROP OU HS, (Reported) Entered as Reported by: LETICIA BLACKMAN on 03/20/21 1056 Mometasone/Formoterol (Dulera 200 Mcg/5 Mcg Inhaler) 13 Gm Hfa.aer.ad, 2 PUFF INH BID, (Reported) Entered as Reported by: TANK CHAPPELL on 08/08/20 1230 Montelukast Sodium (Montelukast Sodium) 10 Mg Tablet, 10 MG PO HS, (Reported) Entered as Reported by: TANK CHAPPELL on 08/08/20 1230 Oxycodone HCl/Acetaminophen (Percocet 5-325 mg Tablet) 1 Each Tablet, 1 TAB PO Q6H Prescribed by: ROBERT ALVAREZ on 10/03/21 1226 Rifampin (Rifampin) 300 Mg Capsule, 600 MG PO DAILY, (Reported) Entered as Reported by: LETICIA BLACKMAN on 03/20/21 1056 Tamsulosin HCl (Flomax) 0.4 Mg Cap, 0.8 MG PO DAILY, (Reported) Entered as Reported by: TANK CHAPPELL on 08/08/20 1230 Tiotropium [place] (Spiriva Respimat 2.5MCG/ACTUATION) 4 Gm Mist.inhal, 2 PUFF IH DAILY, (Reported) Entered as Reported by: TANK CHAPPELL on 08/08/20 1230 Discontinued Medications Doxycycline Monohydrate (Doxycycline Monohydrate) 100 Mg Tablet, 100 MG PO BID Prescribed by: PHILOMENA CONCEPCION on 10/01/21 1239 Review of Systems Review of Systems Constitutional: No chills, No fever Respiratory: cough (Chronic, due to MAC on multidrug regimen at [facility]) Gastrointestinal: No vomiting Musculoskeletal: see HPI Skin: see HPI, change in color Hematologic/Lymphatic: Denies Swollen Glands (CRISTAL BALBUENA MD) Past Dmcgzaa-Tdmejk-Jprhis Hx Immunizations Up To Date First/Initial COVID19 Vaccinat: 07/2020 (CRISTAL BALBUENA MD) Seasonal Allergies Seasonal Allergies: Yes (CRISTAL BALBUENA MD) Past Medical History Surgery/Hospitalization HX: hx of copd Surgeries: Yes Adenoidectomy, Testicular, Tonsillectomy Respiratory: Yes COPD Currently Using CPAP: No Cardiac: No Neurological: No Genitourinary: Yes ("flow problems") Musculoskeletal: No Endocrine: No HEENT: Yes Hearing Impairment: Hard of Hearing Cancer: Yes Testicular Did You Recieve Any Treatments: Yes What Type of Treatment Did You: Surgical Intervention Psychosocial: No Integumentary: No Blood Disorders: No (CRISTAL BALBUENA MD) Family Medical History No pertinent family history (CRISTAL BALBUENA MD) Physical Exam Vital Signs Vital Signs - First Documented 10/03/21 11:11 Temp 36.7 Pulse 92 Resp 20 B/P (MAP) 119/85 (96) (ROBERT PALUMBO MD) Vital Signs Capillary Refill : (CRISTAL BALBUENA MD) General Appearance: no apparent distress Skin: warm/dry, ecchymosis (scant ecchyosis around blister on medial upper rig ht arm; moderate non-circumferential swelling distal to that. Nothing in axilla) Skin Problem Location: upper extremities (RUE) Skin Problem Character: blanching, bullous, erythema Lymphatic: no adenopathy (CRISTAL BALBUENA MD) Procedures/Interventions Ultrasound: normal Soft tissue ultrasound at bedside shows soft tissue edema, no abscess or fluid collection, and normal vascular structures in area of concern on RUE starting on medial surface over brachial artery and extending onto extensor surface right forearm in a distribution consistent w/ gravity (not vascular or dermatomal). After excluding abscess, I opened the solitary blister on medial upper RUE and drained it for culture. It was serous fluid rather than pus. (CRISTAL BALBUENA MD) Progress/Results/Core Measures Results/Orders Medications Given in ED Current Medications Medications Dose Ordered Sig/Fariba Route Start Time Stop Time Status Last Admin Dose Admin Oxycodone/ Acetaminophen 1 tab ONCE ONCE PO 10/03/21 11:45 10/03/21 11:46 DC 10/03/21 11:39 1 TAB (ROBERT PALUMBO MD) Vital Signs/I&O 10/03/21 11:11 Temp 36.7 Pulse 92 Resp 20 B/P (MAP) 119/85 (96) (ROBERT PALUMBO MD) Progress Progress Note : Progress Note Medical decision making: it appears unlikely to be a tick-borne illness; rather that one of two scenarios occurred: (1) the tick bite simply caused itching and his vigorous scratching broke the skin enough for cellulitis to occur; or (2) spider bite causing the localized pain and blister w/ dependent spread of venom causing intense inflammatory response mistaken for cellulitis. Either way, the inflammation over the brachial artery and nerve have caused a neuropathic pain response that should be treated aggressively so as to minimize risk of RSD. It has much greater pain report than expected and is intensely allodynic on ER exam. I had difficulty executing the electronic prescription for Percocet and Dr Palumbo (on duty at [facility]) was gracious enough to assist in getting this man treated today. He will need prompt PCP follow up on the culture. I will continue the Doxycycline since he appears to have less redness in the ink-marked area from yesterday. I have discussed care with patient and family and addressed their questions. He is discharged in stable condition (CRISTAL BALBUENA MD) Departure Impression Primary Impression: Cellulitis Additional Impression: Neuropathic pain Disposition: HOME, SELF-CARE Condition: Stable Departure-Patient Inst. Decision time for Depature: 12:07 (CRISTAL BALBUENA MD) Referrals: LUBNA HAWKINS (PCP) Primary Care Physician NO,LOCAL PHYSICIAN (Family) Primary Care Physician Patient Instructions: Cellulitis (Skin Infection), Adult (DC) Scripts Oxycodone HCl/Acetaminophen (Percocet 5-325 mg Tablet) 1 Each Tablet 1 TAB PO Q6H for PAIN-MODERATE MDD 6 TABS, #12 TAB Prov: ROBERT PALUMBO MD 10/03/21 CRISTAL BALBUENA MD Oct 03, 2021 11:19 ROBERT PALUMBO MD Oct 03, 2021 12:26
[2021-10-03] MEDS ORDERED: oxyCODONE/APAP 5/325MG (PERCOCET 5) TABLET PO ONE (11:45)
[2021-10-03] MEDS ORDERED: OXYC1TAB87 PO ×2 (12:09→12:26)
[2021-10-03 12:30] VITALS: BP 119/85
== END 2021-10-03 12:35 | disposition home or self-care (01) ==
LOC: EDUNIT# 11:08 → ER FS 11:09
DX: L03.113 Cellulitis of right upper limb (principal); G62.9 Polyneuropathy, unspecified
CPT/HCPCS: 87070; 87205

== ENCOUNTER → 2023-01-17 | Outpatient (CLI) | payer MEDICARE ==
[~2023-01-17] MED LIST changes: +ALBU8.5H6 IH; -MOME13HF INH; +MOME13HF11 INH; +OXYC1TAB87 PO; -RIFA300C3 PO; +RIFA300C8 PO; -RT-ALBUINH IH
== END ==
LOC: RAD 11:18
PROVIDERS: ATTEND Student in an Organized Health Care Education/Training Program
DX: Z53.9 Procedure and treatment not carried out, unspecified reason (principal)

== ENCOUNTER → 2023-01-17 | Outpatient (CLI) | payer MEDICARE, OTHER ==
--- NOTE | 2023-01-17 12:04 | Diagnostic Imaging Report ---
PROCEDURE: CT head without contrast. TECHNIQUE: Multiple contiguous axial images were obtained through the brain without the use of intravenous contrast. Auto Exposure Controls were utilized during the CT exam to meet ALARA standards for radiation dose reduction. INDICATION: Dizzy spells for 3 weeks. No prior studies are available for comparison. FINDINGS: The ventricles and sulci are prominent consistent with cerebral volume loss. There is moderate periventricular low-attenuation consistent with chronic microvascular ischemia. There is no sulcal effacement or midline shift. No acute intra-axial or extra-axial hemorrhage is detected. Visualized paranasal sinuses demonstrate some mucosal thickening in multiple ethmoid air cells as well as the left maxillary sinus. Cisterns are patent. IMPRESSION: Chronic and senescent changes. No acute intracranial process is detected. Dictated by: Dictated on workstation # [id number]
--- NOTE | 2023-01-17 12:13 | Diagnostic Imaging Report ---
PROCEDURE: CT chest without contrast. TECHNIQUE: Multiple contiguous axial images were obtained through the chest without the use of intravenous contrast. Auto Exposure Controls were utilized during the CT exam to meet ALARA standards for radiation dose reduction. 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 COMPARISON: 01/26/2021 FINDINGS: A few calcified left hilar lymph nodes are present. No pathologically enlarged lymph nodes within the chest. Mild scattered vascular calcifications without aneurysmal dilatation of thoracic aorta. The heart is within normal limits in size. No significant pericardial effusion. No pleural effusion. Advanced background emphysematous changes are again identified throughout the lungs. No pneumothorax. Dense consolidation with associated cavitary changes, architectural distortion, and bronchiectatic changes again identified within the right upper lobe with associated volume loss and retraction. This appears relatively similar to the prior examination from 2020. Calcified granuloma within the left upper lobe is stable. Unchanged 0.5 cm left lower lobe pleural-based pulmonary nodule, which is benign. Persistent scarring within the medial right lower lobe is again identified. This appears stable to slightly less prominent than the prior examination. Interstitial opacities within the inferior right lower lobe are also unchanged from the prior exam. Stable pleural-based pulmonary nodule within the anterior right middle lobe. No new suspicious or actionable pulmonary nodule or opacity. Minimal secretions within the trachea. Significant amount of enteric contents within the stomach. Calcified splenic granuloma. Left renal cyst is again identified. Minimal scattered osseous degenerative changes without acute osseous abnormality. IMPRESSION: Persistent consolidation with associated cavitation, bronchiectasis, and distortion within the right upper lung. This has not significantly changed from prior imaging is felt relate to sequelae of a prior infection, including atypical infection. No new suspicious or actionable pulmonary nodule or opacity. Advanced background emphysematous changes. Evidence of chronic granulomatous disease. Additional findings as above. Dictated by: Dictated on workstation # [id number]
== END ==
LOC: RAD 11:17
PROVIDERS: ATTEND Nurse Practitioner
DX: Z01.89 Encounter for other specified special examinations (principal); J47.9 Bronchiectasis, uncomplicated; J43.9 Emphysema, unspecified; A31.0 Pulmonary mycobacterial infection; D71 Functional disorders of polymorphonuclear neutrophils
CPT/HCPCS: 70450; 71250